=== PATIENT | female | born 1990 | race Two or more races ===

== ENCOUNTER 2024-06-10 18:25 | Outpatient (CLI) | payer OTHER, SELFPAY | END 2024-06-10 18:26 | disposition home or self-care (01) | LOC: AMB 06-13 02:15 | PROVIDERS: Visit Provider Family Medicine | DX: R42 Dizziness and giddiness (principal) | CPT/HCPCS: A0425; A0427 ==

== ENCOUNTER 2024-06-10 19:14 | Emergency (ER) | payer OTHER, SELFPAY ==
[2024-06-10 19:23] VITALS: BP 145/96; PULSE 99; RESP 18; TEMP 37; O2SAT 98; BMI 41.9
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
[2024-06-10] MEDS: METOCLOPRAMIDE HCL 10 MG in 0.9 % SODIUM CHLORIDE 100 ml 100 ML 306 MG IVPB (20:46)
[2024-06-10] MEDS: diphenhydrAMINE 50 MG/ML inj 25 MG IVP (20:47)
[2024-06-10] MEDS: 0.9 % SODIUM CHLORIDE 500 ML 500 ML IV (20:48)
[2024-06-10 21:00] VITALS: O2SAT 98
--- OUTSIDE RECORDS SUMMARY | 2024-06-10 21:14 | XMS_ITS | Encounter Summary ---
[facility] Address [address] [address] Care Team Providers Care Event Decorator And Designer Name Role Phone Jocelyn Cortes MD Primary Care Provider [phone] Encounter Details Date Type Department Care Team (Late st Contact Info) Description 05/10/2019 Correspondence None No Primary/Referring, Phy DME PATIENT INSTRUCTION PLAN OF CARE Social History Tobacco Use Types Packs/Day Years Used Date Smoking Tobacco: Some Days Cigarettes 0.5 1 Smokeless Tobacco: Never Comments:Smoked for 4 months Alcohol Use Standard Drinks/Week Comments Yes 0 (1 standard drink = 0.6 oz pur e alcohol) rare beer Comments No Sex and Gender Information Value Date Recorded Sex Assigned at Not on file Legal Sex Female 7:22 PM CDT Gender Identity Not on file Sexual Orientation Not on file documented as of this encounter Plan of Treatment Not on file documented as of this encounter Visit Diagnoses Not on filedocumented in this encounter Care Teams Event Decorator And Designer Relationship Specialty Start Date End Date Jocelyn Cortes MD [address] [place] [phone] PCP - General Family Practice 09/22/12 documented as of this encounter
--- OUTSIDE RECORDS SUMMARY | 2024-06-10 21:14 | XMS_ITS | Clinical Summary ---
Author Organization [facility] Address [address] [place] [address] Care Team Providers Care Used Car Renovator Name Role Phone Tg Russell P.A.-C. Primary Care Pro vider Source Comments Patient records contain information from all sites at [facility]. For routine questions regarding patient records, call [phone] during business hours, M-F 8:00 AM - 5:00 PM Central Time. 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 Latex Rash 02/25/2011 Allergy band placed Morphine Anaphylaxis,Hives (Reselect Reaction),Other (see comments) High 01/30/2011 Chest heaviness Medications * This document contains information received from the source organization and may not represent a complete record from that organization. cholecalciferol , vitamin D3, 25 mcg (1,000 Unit) tablet Take 1,000 Units by mouth daily. Active pyridoxine, vitamin B6, (B-6) 100 mg tablet Take 1 po day 0 Active multivitamin capsule Take 1 capsule by mouth daily. Active SUMAtriptan (Imitrex) 50 mg tablet Take 1 tablet (50 mg total) by mouth as needed for migraine. May repeat dose once in 2 hours if migraine is unresolved. Do not exceed 200 mg in 24 hours. 9 tablet 4 Active clotrimazole-be tamethasone (Lotrisone) 1-0.05 % cream Apply topically daily as needed (psoriasis). 45 g 3 4 Active omeprazole (PriLOSEC) [address] capsule Take 20 mg by mouth daily as needed. Active fluorouraciL (Efudex) 5 % creamIndication s:Wart Plantar Apply 1 Application topically 2 (two) times a day. Apply to wart left foot. 40 g 5 Active Active Problems Problem Noted Date Diagnosed Date Morbid Obesity Body Mass Index 40.0-44.9 Adult 0 05/20/2024 New Daily Persistent Headache (NDPH) 05/06/2024 Attention Deficit Disorder Combined Type 023 Overview (04/19/2024): She meets DSM-IV criteria for ADHD with inattention and hyperactivity (08/29/2022). She did not tolerate or find benefit from Bupropion or Strattera when prescribed around Spring 2022. We have previously discussed consult to Psychiatry to assist with confirming the diagnosis and providing medication management recommendations. Nicotine Dependence Cigarettes 08/29/2022 Overview (09/24/2022): - No benefit with Wellbutrin when tried for ADHD. - Patient not interested in discussing additional smoking cessation therapy at this time. Abnormal Pap Smear Cervix 11/04/2021 Overview (11/04/2021): History of colposcopy and LEEP procedure of unknown date. Pap smear completed 09/2021 was negative HPV and normal cytology. Gastroesophageal Reflux Disease 09/27/2021 Polycystic Ovary Syndrome 09/27/2021 Overview (05/10/2024): Patient declined OBGYN consult Apr 2024. See nursing communication. Tinnitus Right 09/27/2021 Migraine Headache 09/27/2021 Fibromyalgia 09/27/2021 Idiopathic Hypersomnia 09/27/2021 Overview (09/27/2021): Previous neurologist wanted patient to try Modafinil but it was too expensive. Psoriasis 09/27/2021 Arthritis Psoriatic 11/17/2019 Overview (04/18/2024): Reviewed [facility] rheumatology consult in 2019. Previously on Enbrel Vitiligo 03/21/2019 Resolved Problems Problem Noted Date Diagnosed Date Resolved Date Psoriasis 04/19/2024 04/19/2024 Anosmia 09/27/2021 02/02/2024 Depression Anxiety 09/04/2021 Dysthymia 02/24/2012 02/02/2024 Overview (09/16/2016): Reactive depression Encounters Date Type Department Care Team Description 06/06/2024 3:45 PM PREP MANAGER Office Visit Department of Orthopedic Surgery in [address] [phone] Joyce Montemayor APRN C.N.P., M.S.N. Wart Plantar (Primary Dx); Pain Foot Left Discharge Disposition: Home or Self Care 05/20/2024 9:46 AM PREP MANAGER - 05/20/2024 11:59 PM PREP MANAGER Hospital Encounter Department of Radiology in [address] [phone] Tg Russell MPAS, P.A.-C. Pain Knee Left; Pain Knee Right Discharge Disposition: Home or Self Care 05/20/2024 9:20 AM PREP MANAGER Office Visit Department of Community Internal Medicine in [address] [phone] Tg Russell MPAS, P.A.-C. Morbid Obesity Body Mass Index 40.0-44.9 Adult (HCC) (Primary Dx); Patellofemoral Pain Syndrome Left; Patellofemoral Pain Syndrome Right; Arthritis Psoriatic (HCC); Pain Knee Left; Pain Knee Right 05/20/2024 Results Follow-Up Department of Community Internal Medicine in [place], [place] [address] [place] [phone] Tg Russell MPAS, P.A.-C. DX Knee Bilateral 3 Views 05/19/2024 Clinical Communication Department of Community Internal [facility] in [place], [place] [address] [place] [phone] Tg Russell MPAS, P.A.-CSherif Communication (Knee injections ) 05/09/2024 Clinical Communication Department of [facility] in [place], [place] [address] [place] [phone] Tg Russell MPAS, P.A.-C. 05/06/2024 8:00 AM PREP MANAGER Telemedicine Department of [facility] in [place], [place] [address] [place] [phone] Tg Russell MPAS, P.A.-CSherif New Daily Persistent Headache (NDPH) (Primary Dx) 05/05/2024 9:25 AM PREP MANAGER Ancillary Procedure Department of Wound Ostomy 05/05/2024 9:00 AM PREP MANAGER Comprehensive Visit Department of Orthopedic Surgery in [address] [phone] Joyce Montemayor APRN C.N.P., M.S.N. Pain Foot Left (Primary Dx); Wart Plantar Discharge Disposition: Home or Self Care 04/21/2024 3:23 PM PREP MANAGER - 04/21/2024 11:59 PM PREP MANAGER Hospital Encounter Department of Radiology in [place], [place] [address] [phone] Tg Russell MPAS, P.A.-C. Headache Unspecified Discharge Disposition: Home or Self Care 04/19/2024 8:53 AM PREP MANAGER - 04/19/2024 11:59 PM PREP MANAGER Hospital Encounter Department of Laboratory Medicine in [place], [place] [address] [place] [phone] Tg Russell MPAS, P.A.-C. Other Thrombocytosis; Screening Test Laboratory Discharge Disposition: Home or Self Care 04/19/2024 8:00 AM PREP MANAGER Comprehensive Visit Department of [facility] in [place], [place] [address] [place] [address] Tg Russell MPAS, P.A.-C. Arthritis Psoriatic (HCC) (Primary Dx); Attention Deficit Disorder Combined Type; Fibromyalgia; Anxiety; Psoriasis; Vitiligo; Wart Plantar; Gastroesophageal Reflux Disease; Polycystic Ovary Syndrome; Morbid Obesity Body Mass Index 40.0-44.9 Adult (HCC); Headache Unspecified; Nicotine Dependence Cigarettes; Pap Smear Examination; Abnormal Pap Smear Cervix; Other Thrombocytosis; Need Vaccine Immunization; General Medical Examination Adult; Screening Test Laboratory 03/31/2024 Refill Department of Family Medicine, [facility], in [address] [phone] Neida Marshall APRN, C.N.P., D.N.P. Med Refill 03/30/2024 9:20 AM PREP MANAGER - 03/30/2024 11:59 PM PREP MANAGER Hospital Encounter Department of Laboratory Medicine in [address] [phone] Neida Marshall APRN, C.N.P., D.N.P. Migraine Headache Discharge Disposition: Home or Self Care 03/30/2024 8:00 AM PREP MANAGER Office Visit Department of [facility], [facility], in [address] [phone] Neida Marshall APRN, C.N.P., D.N.P. Migraine Headache (Primary Dx); Wart Plantar 03/28/2024 Nurse Triage Department of Community Internal Medicine in [address] [phone] Meagan Shi R.N. Headache from Last 3 Months Immunizations Immunization Administration Dates Next Due 4vHPV (discontinued) 06/01/2007 DTaP (Infanrix, Tripedia) 11/23/2008,,11/15/1994,1990,1990,1990,1990 HepB Pediatric/Adolescent 11/23/2008,,03/13/2003,2002 HepB, Unspecified 11/23/2008 Influenza, Seasonal, Injectable 02/18/2007 Influenza, Unspecified 01/31/2011 MCV4 (Menactra)(Discontinued) 06/01/2007 MMR 11/15/1994,04/25/1991 OPV 12/26/1994, 1,1990,1989 PCV20 02/14/2022 SARS-COV-2 (COVID-19) - PFIZ ER (Discontinued)(12 years or older) 09/20/2020,08/29/2020 SARS-COV-2 (COVID-19) - PFIZ ER TS(Discontinued)(12 years or older) 06/14/2021 Td (Adult), adsorbed 02/02/2003 Tdap 10/08/2018,11/23/2008 influenza vaccine quad (FLUZONE/FLUARIX) (6 months and older)(PF) 02/14/2022,06/27/2019 Family History Medical History Relation Name Comments Lupus Father's Sister Depression Maternal Grandmother Ashley Leonel rn yes Personality disorder Maternal Grandmother Ashley Santosh ongenstern Schizophrenia Maternal Grandmother Ashley Izabel oleksandr Bipolar disorder Mother Liliya Mccarthy Depression Mother Liliya Mccarthy no RA - Rheumatoid arthritis Paternal Grandmother Relation Name Status Comments Father's Sister Alive Maternal Grandmother Ashley Uzma Alive Mother Liliya Mccarthy Alive Paternal Grandmother Social History Tobacco Use Types Packs/Day Years Used Date Smoking Tobacco: Former Cigarettes 0.5 17.1 S tarted: 2008 Passive Smoke Exposure: Current Smokeless Tobacco: Former Alcohol Use Standard Drinks/Week Comments Yes 0 (1 standard drink = 0.6 oz pur e alcohol) 1-2 drinks a month [facility] Utilities Answer Date Recorded In the past 12 months has e [employer], gas, oil, or water [employer] threatened to shut off services in your home? No 04/19/2024 Humiliation, Afraid, Rape, and Kick questionnair e Answer Date Recorded Within the last year, have y ou been afraid of your partner or ex-partner? No 08/29/2022 Within the last year, have y ou been humiliated or emotionally abused in other ways by your partner or ex-partner? No Within the last year, have y ou been kicked, hit, slapped, or otherwise physically hurt by your partner or ex-partner? No 08/29/2022 Within the last year, have y ou been raped or forced to have any kind of sexual activity by your partner or ex-partner? No 08/29/2022 Social Connection and Isolat ion Panel [NHANES] Answer Date Recorded In a typical week, how many times do you talk on the phone with family, friends, or neighbors? More than three times a week 08/29/2022 How often do you get togethe r with friends or relatives? Once a week 08/29/2022 How often do you attend chur or tenriism services? Never 08/29/2022 Do you belong to any clubs o r organizations such as spiritism groups, unions, fraternal or athletic groups, or school groups? No 08/29/2022 How often do you attend meet ings of the clubs or organizations you belong to? Never 08/29/2022 Are you , , di vorced, , never , or living with a partner? Never 08/29/2022 AUDIT-C Answer Date Recorded Q1: How often do you have a drink containing alc ohol? 2-3 times a week 08/29/2022 Q2: How many drinks containi ng alcohol do you have on a typical day when you are drinking? 1 or 2 08/29/2022 Q3: How often do you have si x or more drinks on one occasion? Never 08/29/2022 Overall Financial Resource Strain (CARDIA) Answe r Date Recorded How hard is it for you to pa y for the very basics like food, housing, medical care, and heating? Not very hard 08/29/2022 PHQ-2 Answer Date Recorded PHQ-2 Score 1 05/06/2024 [facility] - Occupational Stress Questionnaire Answer Date Recorded Do you feel stress - tense, restless, nervous, or anxious, or unable to sleep at night because your mind is troubled all the time - these days? Very much 08/29/2022 Exercise Vital Sign Answer Date Recorde d On average, how many days pe r week do you engage in moderate to strenuous exercise (like a brisk walk)? 3 days 04/19/2024 On average, how many minutes do you engage in exercise at this level? 0 min 04/19/2024 Hunger Vital Sign Answer Date Recorded Within the past 12 months, y ou worried that your food would run out before you got the money to buy more. Never true 04/19/20 Within the past 12 months, t he food you bought just didn't last and you didn't have money to get more. Never true 04/19/2024 PRAPARE - Transportation Answer Date Re corded In the past 12 months, has l ack of transportation kept you from medical appointments or from getting medications? No 03/28 In the past 12 months, has l ack of transportation kept you from meetings, work, or from getting things needed for daily living? No 04/19/2024 Depression Answer Date Recor ded PHQ-9 Total Score (max 27) 18 08/29 Nutrition Answer Date Recorded On average, how many serving s of fruits and vegetables do you eat per day (serving size is equal to 1 cup or approximately the size of a tennis ball)? 0-2 04/19/2024 Dental Answer Date Recorded Dental: Regular Dentist Yes 08/30/19 Employment Answer Date Recorded Employment status Employed and actively working without restrictions 04/19/2024 Housing Stability Answer Date Recorded What is your living situation today? I have a [facility] place to live 04/19/2024 Education Answer Date Recorded What is the highest level of school you have completed or the highest degree you have received? Associate degree: academic program 08/29/2022 Comments No Sex and Gender Information Value Date Recorded Sex Assigned at Female 04/19/2024 7:32 AM PREP MANAGER Legal Sex Female 10:31 AM PREP MANAGER Gender Identity Female 04/19/2024 7:32 AM PREP MANAGER Sexual Orientation Straight 04/19/2024 7: 32 AM PREP MANAGER Last Filed Vital Signs Vital Sign Reading Time Taken Comments Blood Pressure 120/78 05/20/2024 9:01 AM PREP MANAGER Pulse 79 05/20/2024 9:01 AM PREP MANAGER Temperature 36.6 C (97.9 F) 05/20/2024 9:01 AM PREP MANAGER Respiratory Rate 20 04/19/2024 7:31 AM PREP MANAGER Oxygen Saturation 97% 06/08/2023 1:4 7 PM PREP MANAGER room air with a mask Inhaled Oxygen Concentration - - Weight 129 kg (284 lb 6.3 oz) 05/20/2024 9:01 AM PREP MANAGER Height 174 cm (5' 8.5) 05/20/2024 9:01 AM PREP MANAGER Body Mass Index 42.61 05/20/2024 9:01 AM PREP MANAGER Plan of Treatment Upcoming Encounters Date Type Department Care Team (Latest Contact Info) Description 07/05/2024 8:30 AM CDT Office Visit Department of Orthopedic Surgery in [address] [phone] Joyce Montemayor APRN, C.N.P., M.S.N. [facility] [place] [phone] Discharge Disposition: Home or Self Care 07/21/2024 4:30 PM CDT Comprehensive Visit Department of Family Medicine, [facility], in [place], [place] [address] [place] [phone] Kayy Valenzuela APRN, C.N.P. [address] [address] Health Maintenance Due Date Last Done Comments HPV Vaccines (2 - 3-dose series) 06/29/2007 06/01/2007 COVID-19 Vaccine ( season) 2023 06/14/2021, 09/20/2020, 08/29/2020 Influenza Vaccine (#1) 2024 , 06/27/2019, 01/31/2011, Additional history exists Cervical/Vaginal Cancer Screening 04/19/2025 04/19/2024, 04/19/2024, 09/27/2021, Additional history exists DTaP,Tdap,and Td Vaccines (10 - Td or Tdap) 10/08/2028 10/08/2018, 11/23/2008, 11/23/2008, Additional history exists IPV Vaccines Completed 12/26/1994, 03/29, 1990, Additional history exists Hepatitis B Vaccines Completed 11/23/2008, 11/23/2008, 09/08/2003, Additional history exists Pneumococcal vaccine (0-49 years) Aged Out 02/14/2022 No longer eligible based on patient's age to complete this topic Hepatitis C Screening Completed 04/19/2024 Depression Screening (Annual PHQ-2) Completed 05/06/2024, 05/06/2024 Procedures Procedure Name Priority Date/Time Associated Diagnosis Comments DX KNEE BILATERAL 3 VIEWS RAD - Routine (most inpatients and all outpatients) 05/20/2024 10:06 AM PREP MANAGER Pain Knee Left Pain Knee Right WOUND OSTOMY IMAGE EXAM Routine 05/05/2024 9:25 AM PREP MANAGER MR BRAIN WITHOUT AND WITH IV CONTRAST RAD - Routine (most inpatients and all outpatients) 04/21/2024 4:21 PM PREP MANAGER Headache Unspecified GLUCOSE, FASTING, S/P Routine 04/19/2024 9:05 AM PREP MANAGER Screening Test Laboratory CBC WITH DIFFERENTIAL, B Routine 04/19/2024 9:05 AM PREP MANAGER Other Thrombocytosis LIPID PANEL, S Routine 04/19/2024 9:04 AM PREP MANAGER Screening Test Laboratory BASIC METABOLIC PANEL, S/P Routine 04/19/2024 9:04 AM PREP MANAGER Screening Test Laboratory HCV AB SCRN W/REFLEX TO HCV PCR, S Routine 04/19/2024 9:04 AM PREP MANAGER Screening Test Laboratory THINPREP W/HPV CO-TEST DIAGNOSTIC Routine 04/19/2024 8:27 AM PREP MANAGER Pap Smear Examination HPV WITH GENOTYPING, PCR, THINPREP Routine 04/19/2024 8:27 AM PREP MANAGER VITAMIN D, IMMUNOASSAY, TOTAL, S Routine 03/30/2024 9:36 AM PREP MANAGER Migraine Headache ELECTROLYTE (CHEM 4) PANEL, S/P Routine 03/30/2024 9:36 AM PREP MANAGER Migraine Headache from Last 3 Months Results * DX Knee Bilateral 3 Views (05/20/2024 10:06 AM PREP MANAGER) Anatomical Region Laterality Modality Lower Extremity, Knee, Muscu loskeletal RST LOS, Musculoskeletal ARZ LOS, Muskuloskeletal FLA LOS Bilateral Digit al Radiography Impressions 05/20/2024 11:03 AM PREP MANAGER Comparison 01/04/2008. On the right, joint spaces and alignment are normal. No acute fracture or joint effusion. On the left, joint spaces and alignment are normal. No acute fracture or joint effusion. Narrative 05/20/2024 11:03 AM PREP MANAGER EXAM: DX KNEE BILATERAL 3 VIEWS Procedure Note Navneet Albrecht M.D. - 05/20/2024 EXAM: DX KNEE BILATERAL 3 VIEWS IMPRESSION: Comparison 01/04/2008. On the right, joint spaces and alignment are normal. No acute fracture orjoint effusion. On the left, joint spaces and alignment are normal. No acute fracture orjoint effusion. us Tg URIAS, P.A.-C. IMG DIAGNOSTIC IM AGING PROCEDURES Final Result * Foot left 529b-Wound Ostomy Image Exam (05/05/2024 9:25 AM PREP MANAGER) 05/05/2024 9:23 AM PREP MANAGER Narrative [facility] - 05/05/2024 9:26 AM PREP MANAGER This order has been created and auto-finalized to support the import of images acquired without order. The clinical documentation to support these images can be found on the encounter that produced images. us Provider Not In System IMG NON RAD IMAGING PROCE DURES Final Result [facility] NA * MR Brain without and with IV Contrast (04/21/2024 4:21 PM PREP MANAGER) Anatomical Region Laterality Modality Head, Brain, Neuroradiology RST LOS, Neuroradiology ARZ LOS, Neuroradiology FLA LOS N/A Magnetic Resonance Impressions 04/21/2024 5:02 PM PREP MANAGER Negative for acute intracranial disease. Narrative 04/21/2024 5:02 PM PREP MANAGER EXAM: MR BRAIN WITHOUT AND WITH IV CONTRAST COMPARISON:No pertinent prior studies. FINDINGS: No areas of restricted diffusion to suggest acute infarct. No abnormal parenchymal susceptibility. No focal enhancing brain lesions. The pituitary gland is not enlarged. Normal morphology of bilateral cerebellar tonsils which are situated above the foramen magnum. No extra-axial fluid collection, intracranial mass or midline shift. The basal cisterns are patent. Intact intracranial arterial flow voids. Bilateral orbits, paranasal sinuses and mastoid air cells are unremarkable. Procedure Note Papito Rocha M.B., E[place], MGanga - 04/21/2024 EXAM: MR BRAIN WITHOUT AND WITH IV CONTRAST COMPARISON:No pertinent prior studies. FINDINGS: No areas of restricted diffusion to suggest acute infarct. No abnormalparenchymal susceptibility. No focal enhancing brain lesions. Thepituitary gland is not enlarged. Normal morphology of bilateral cerebellartonsils which are situated above the foramen magnum. No extra-axial fluid collection, intracranial mass ormidline shift. The basal cisterns are patent. Intact intracranialarterial flow voids. Bilateral orbits, paranasal sinuses and mastoid aircells are unremarkable. IMPRESSION: Negative for acute intracranial disease. Tg URIAS, P.A.-C. IMG MRI PROCEDURE S Final Result * CBC with Differential, Blood (04/19/2024 9:05 AM PREP MANAGER) Hemoglobin 11.8 11.6 - 15.0 g/dL 04/19/2024 9:10 AM PREP MANAGER FB60 Hematocrit 36.5 35.5 - 44.9 % 04/19/2024 9:10 AM PREP MANAGER FB60 Erythrocytes 4.42 3.92 - 5.13 x10(12)/L 04/19/2024 9:10 AM PREP MANAGER FB60 MCV 82.6 78.2 - 97.9 fL 04/19/2024 9:10 AM PREP MANAGER FB60 RBC Distrib Width 13.5 12.2 - 16.1 % 04/19/2024 9:10 AM PREP MANAGER FB60 Platelet Count 357 157 - 371 x10(9)/L 04/19/2024 9:10 AM PREP MANAGER FB60 Leukocytes 9.2 3.4 - 9.6 x10(9)/L 04/19/2024 9:10 AM PREP MANAGER FB60 Neutrophils 6.11 1.56 - 6.45 x10(9)/L 04/19/2024 9:10 AM PREP MANAGER FB60 Lymphocytes 2.39 0.95 - 3.07 x10(9)/L 04/19/2024 9:10 AM PREP MANAGER FB60 Monocytes 0.56 0.26 - 0.81 x10(9)/L 04/19/2024 9:10 AM PREP MANAGER FB60 Eosinophils 0.10 0.03 - 0.48 x10(9)/L 04/19/2024 9:10 AM PREP MANAGER FB60 Basophils 0.04 0.01 - 0.08 x10(9)/L 04/19/2024 9:10 AM PREP MANAGER FB60 Blood (Blood, Venous) 04/19/2024 9:05 AM PREP MANAGER 04/19/2024 9:05 AM PREP MANAGER Tg URIAS, P.A.-C. LAB BLOOD ADD-ON Final Result [facility] [address] [place] [address], [facility] FB60 [facility] in [place] [address] [place] [address] * Glucose, Fasting (04/19/2024 9:05 AM PREP MANAGER) Glucose, P 92 70 - 100 mg/dL 04/19/2024 1:33 PM PREP MANAGER OWAT Last Intake 9 hr 04/19/2024 1:02 PM PREP MANAGER OWAT Blood (Blood, Venous) 04/19/2024 9:05 AM PREP MANAGER 04/19/2024 1:02 PM PREP MANAGER us Tg RUIAS PSherifA.-C. LAB BLOOD NON ADD -ON Final Result [facility] [address] [facility] [address], [place] OWAT [facility] in [place] [address] [place] [address] * Lipid Panel (04/19/2024 9:04 AM PREP MANAGER) Triglycerides 78 mg/dL 04/19/2024 1:26 PM PREP MANAGER OWAT Comment: ----REFERENCE VALUE---- Normal: <150 mg/dL Borderline High: 150-199 mg/dL High: 200-499 mg/dL Very High: > or =500 mg/dL Cholesterol, Total 183 mg/dL 2023 1:26 PM PREP MANAGER OWAT Comment: ----REFERENCE VALUE---- Desirable: < 200 mg/dL Borderline High: 200 - 239 mg/dL High: > or = 240 mg/dL Cholesterol, LDL, Calculated 119 mg/dL 04/19/2024 1:26 PM PREP MANAGER OWAT Comment: ----REFERENCE VALUE---- Desirable: <100 mg/dL Above Desirable: 100-129 mg/dL Borderline High: 130-159 mg/dL High: 160-189 mg/dL Very High: >=190 mg/dL ----ADDITIONAL INFORMATION---- LDL cholesterol calculated using the Zaldivar/NIH equation. Cholesterol, HDL 50 >=50 mg/dL 04/19/20 1:26 PM PREP MANAGER OWAT Cholesterol, Non-HDL, Calculated 133 mg/dL 04/19/2024 1:26 PM PREP MANAGER OWAT Comment: ----REFERENCE VALUE---- Desirable: <130 mg/dL Above Desirable: 130-159 mg/dL Borderline High: 160-189 mg/dL High: 190-219 mg/dL Very High: > or =220 mg/dL Fasting (8 HR or more) Yes 04/19/2024 9:05 AM PREP MANAGER OWAT Blood (Blood, Venous) 04/19/2024 9:04 AM PREP MANAGER 04/19/2024 1:04 PM PREP MANAGER us Tg URIAS P.A.-C. LAB BLOOD ADD-ON Final Result [facility] [address] [place] [address], [place] OW[place] [facility] in [place] [address] [place] [address] * HCV Ab Scrn w/Reflex to HCV PCR, Serum (04/19/2024 9:04 AM PREP MANAGER) Pathologist [facility] [place] HCV Ab Screen, S Negative Negative 04/19/2024 8:32 PM PREP MANAGER [facility] Blood (Blood, Venous) 04/19/2024 9:04 AM PREP MANAGER 04/19/2024 8:03 PM PREP MANAGER Narrative [facility] - 04/19/2024 8:32 PM PREP MANAGER Specimen Information: Specimen ID: [id number] Specimen Type: Blood Specimen Collection Start Date: 04/19/2024 9:04 AM Specimen Received Date: 04/19/2024 8:03 PM Specimen ID: [id number] Specimen Type: Blood Specimen Collection Start Date: 04/19/2024 9:04 AM Specimen Received Date: 04/19/2024 7:59 PM us Tg URIAS, P.A.-C. LAB MICROBIOLOGY - BLOOD ORDERABLES Final Result [facility] [address] [place] [address], [facility] MKTO [facility] [address] [place] [id number] * Basic Metabolic Panel (04/19/2024 9:04 AM PREP MANAGER) Potassium, P 4.2 3.6 - 5.2 mmol/L 04/19/2024 1:26 PM PREP MANAGER OWAT Sodium, P 138 135 - 145 mmol/L 04/19/2024 1:26 PM PREP MANAGER OWAT Chloride, P 102 98 - 107 mmol/L 04/19/2024 1:26 PM PREP MANAGER OWAT Bicarbonate, P 28 22 - 29 mmol/L 04/19/2024 1:26 PM PREP MANAGER OWAT Anion Gap, P 8 7 - 15 04/19/2024 1:26 PM PREP MANAGER OWAT BUN (Blood Urea Nitrogen), P 11 6 - 21 mg/dL 04/19/2024 1:26 PM PREP MANAGER OWAT Creatinine 0.75 0.59 - 1.04 mg/dL 04/19/2024 1:26 PM PREP MANAGER OWAT Estimated GFR (eGFR) >90 >=60 mL/min/BSA 04/19/2024 1:26 PM PREP MANAGER OWAT Comment: Estimated GFR calculated using the 2020 CKD_EPI creatinine equation. Calcium, Total, P 9.4 8.6 - 10.0 mg/dL 04/19/2024 1:26 PM PREP MANAGER OWAT Glucose, P CANCELED mg/dL 04/19/2024 1:04 PM PREP MANAGER OWAT Comment: Duplicate test request. Result canceled by the ancillary. Blood (Blood, Venous) 04/19/2024 9:04 AM PREP MANAGER 04/19/2024 1:04 PM PREP MANAGER us Tg URIAS, P.A.-C. LAB BLOOD ADD-ON Final Result [facility] [place] [address] [place] [address], [facility] OWAT [facility] [place] [address] [place] [address] * ThinPrep w/HPV Co-Test Diagnostic (04/19/2024 8:27 AM PREP MANAGER) 04/26/2024 9:29 AM PREP MANAGER HKCY Report electronically signed by MARLON Pinto([facility] I verify that I have examined all relevant slides/materials for the specimen(s) and rendered or confirmed the diagnosis. 04/26/2024 9:29 AM PREP MANAGER HKCY Gross Description Received specimen in a ThinPrep vial. 04/26/2024 9:29 AM PREP MANAGER HKCY Pap Test Source Cervical/Endocervi gerardo 04/26/2024 9:29 AM PREP MANAGER HKCY Hormone Therapy/Contracep tives None/Not known 04/26/2024 9:29 AM PREP MANAGER HKCY Interpretation Cervical/Endocervi egrardo (ThinPrep): Satisfactory for Evaluation Negative for Intraepithelial Lesion or Malignancy High Risk HPV: Negative Negative for High Risk HPV by nucleic acid amplification. The following High Risk HPV types were not detected: 16, 18, 31, 33, 35, 39, 45, 51, 52, 56, 58, 59, 66, and 68. 04/26/2024 9:29 AM PREP MANAGER HKCY Thin Prep Vial (Cervix/Endocerv ix) 04/19/2024 8:27 AM PREP MANAGER 04/21/2024 7:39 AM PREP MANAGER us Tg URIAS, P.A.-C. LAB PAP PATHDX OR DERABLES Final Result Performing Organization Address City/[facility]/ZIP Co de Phone Number [facility] [address] [place] [address], [facility] HKCY [address] [place] [address] * HPV with Genotyping, PCR, ThinPrep (04/19/2024 8:27 AM PREP MANAGER) Pathologist [facility] [place] HPV with Genotyping, ThinPrep, PCR Negative Negative 04/22/2024 3:54 AM PREP MANAGER MKTO 04/19/2024 8:27 AM PREP MANAGER 04/21/2024 7:39 AM PREP MANAGER us Tg URIAS, P.A.-C. LAB MICROBIOLOGY - GENERAL ORDERABLES Final Result Performing Organization Address City/[facility]/ZIP Co de Phone Number [facility] [address] [place] [address], [place] MK[place] [address] [place] [address] * Electrolyte (Chem 4) Panel (03/30/2024 9:36 AM PREP MANAGER) Potassium, P 4.6 3.6 - 5.2 mmol/L 03/30/2024 1:58 PM PREP MANAGER OWAT Sodium, P 139 135 - 145 mmol/L 03/30/2024 1:58 PM PREP MANAGER OWAT Chloride, P 102 98 - 107 mmol/L 03/30/2024 1:58 PM PREP MANAGER OWAT Bicarbonate, P 27 22 - 29 mmol/L 03/30/2024 1:58 PM PREP MANAGER OWAT Anion Gap, P 10 7 - 15 03/30/2024 1:58 PM PREP MANAGER OWAT Blood (Blood, Venous) 03/30/2024 9:36 AM PREP MANAGER 03/30/2024 1:09 PM PREP MANAGER us Neida Marshall APRN, C.N.P., D.N.P. LA B BLOOD ADD-ON Final Result Performing Organization Address City/[facility]/ZIP Co de Phone Number [facility] [address] [place] [address], [place] OWAT [facility] [place] [address], [place] [address] * Vitamin D, Immunoassay, Total, Serum (03/30/2024 9:36 AM PREP MANAGER) Vitamin D, Immunoassay, Total, S 36 20 - 80 ng/mL 03/30/2024 7:45 PM PREP MANAGER MKTO Comment: Optimum levels within the healthy population are 20-50, patients with bone disease may benefit from high levels within this range Blood (Blood, Venous) 03/30/2024 9:36 AM PREP MANAGER 03/30/2024 7:03 PM PREP MANAGER us Neida Marshall APRN, C.N.P., D.N.P. LA B BLOOD ADD-ON Final Result [facility] [place] [address], [place] MK[place] [facility] [place] [address] [place] [address] from Last 3 Months Insurance [employer] Care Teams Used Car Renovator Relationship Specialty Start Date End Date Tg Russell MPAS, P.A.-C. [address] [place] [phone] PCP - General Internal Medicine 09/04/21
--- OUTSIDE RECORDS SUMMARY | 2024-06-10 21:14 | XMS_ITS | Encounter Summary ---
Author Organization [facility] Address [address] [place] [address] Care Team Providers Care Scourer Name Role Phone Tg Russell P.A.-C. Primary Care Pro vider Encounter Details Date Type Department Care Team (Late st Contact Info) Description 05/05/2024 9:25 AM SHIRT BANDER Ancillary Procedure Department of Wound Ostomy Social History Tobacco Use Types Packs/Day Years Used Date Smoking Tobacco: Every Day Cigarettes 0.5 17.1 Started: 2007 Passive Smoke Exposure: Current Smokeless Tobacco: Former Alcohol Use Standard Drinks/Week Comments Yes 0 (1 standard drink = 0.6 oz pur e alcohol) 1-[address] [facility] Utilities Answer Date Recorded In the past 12 months has e electric, gas, oil, or water [employer] threatened to shut off services in your [...] 08/29/2022 How often do you attend chur ch or yazdanism services? Never 08/29/2022 Do you belong to any clubs o r organizations such as methodist groups, unions, fraternal or athletic groups, or [...] Answer Date Recorded PHQ-2 Score 1 05/06/2024 [facility] [place] of Occupat ional Health - Occupational Stress [...] the money to buy more. Never true 12/24/20 24 Within the past 12 months, t he [...] your living situation today? I have a [facility] place to live 04/19/2024 Education Answer Date Recorded What is the highest level of school you have completed or the highest degree you have received? Associate degree: academic program 08/29/2022 Comments No Sex and Gender Information Value Date Recorded Sex Assigned at Female 04/19/2024 7:32 AM SHIRT BANDER Legal Sex Female 10:31 AM SHIRT BANDER Gender Identity Female 04/19/2024 7:32 AM SHIRT BANDER Sexual Orientation Straight 04/19/2024 7: 32 AM SHIRT BANDER documented as of this encounter Plan of Treatment Upcoming Encounters Date Type Department Care Team (Latest Contact Info) Description 07/05/2024 8:30 AM CDT Office Visit Department of Orthopedic Surgery in [address] [address] Joyce Montemayor APRN, C.N.P., M.S.N. [facility] [place] [phone] Discharge Disposition: Home or Self Care 07/21/2024 4:30 PM CDT Comprehensive Visit Department of Family Medicine, [facility] [place], in [place], [place] [address] [place] [address] Kayy Valenzuela APRN, C.N.P. [address] [place] [address] documented as of this encounter Procedures Procedure Name Priority Date/Time Associated Diagnosis Comments WOUND OSTOMY IMAGE EXAM Routine 05/05/2024 9:25 AM SHIRT BANDER documented in this encounter Results * Foot left 529b-Wound Ostomy Image Exam (05/05/2024 9:25 AM SHIRT BANDER) 05/05/2024 9:23 AM SHIRT BANDER Narrative [facility]IMS - 05/05/2024 9:26 AM SHIRT BANDER This order has been created and auto-finalized to support the import of images acquired without order. The clinical documentation to support these images can be found on the encounter that produced images. us Provider Not In System IMG NON RAD IMAGING PROCE DURES Final Result [facility] NA documented in this encounter Visit Diagnoses Not on filedocumented in this encounter Additional Health Concerns Assessment Noted Time PHQ-9 Depression Total Score: 18 05 023 10:59 AM CDT documented as of this encounter Care Teams Scourer Relationship Specialty Start Date End Date Tg Russell MPAS, P.A.-C. [address] [place] [address] [place] [phone] PCP - General Internal Medicine 09/04/21 documented as of this encounter
--- OUTSIDE RECORDS SUMMARY | 2024-06-10 21:14 | XMS_ITS | Encounter Summary ---
Author Organization [facility] Address [address], [place] [address] Care Team Providers Care Bulb Grader Name Role Phone Jocelyn Cortes MD Primary Care Provider +1- [phone] Encounter Details Date Type Department Care Team (Late st Contact Info) Description 05/10/2019 Correspondence None No Primary/Referring, y E INSTRUCTION CHECKLIST Social History Tobacco Use Types Packs/Day Years [...] on filedocumented in this encounter Care Teams Bulb Grader Relationship Specialty Start Date End Date Jocelyn Cortes MD [address] [place] [address] PCP - General Family Practice 09/22/12 documented as of this encounter
--- OUTSIDE RECORDS SUMMARY | 2024-06-10 21:14 | XMS_ITS | Encounter Summary ---
Author Organization [facility] Address [address], [place] [address] Care Team Providers Care Jewel Sorter Name Role Phone Jocelyn Cortes MD Primary Care Provider +1- [phone] Encounter Details Date Type Department Care Team (Late st Contact Info) Description 05/10/2019 Correspondence None No Primary/Referring, Phy HME EQUIPMENT MANUAL EQUIPMENT MECHANIC TICKET CPAP Social History Tobacco Use Types Packs/Day Years [...] on filedocumented in this encounter Care Teams Jewel Sorter Relationship Specialty Start Date End Date Jocelyn Cortes MD [address] [place] [address] PCP - General Family Practice 09/22/12 documented as of this encounter
--- OUTSIDE RECORDS SUMMARY | 2024-06-10 21:14 | XMS_ITS | Encounter Summary ---
Author Organization [facility] Address [address] [place] [address] Care Team Providers Care Optics Technical Officer Name Role Phone Tg Russell, P.A.-C. Primary Care Pro vider Reason for Visit * Reason Onset Date Comments Communication 05/19/2024 Knee injections Encounter Details Date Type Department Care Team (Latest Contact Info) Description 05/19/2024 Clinical Communication Department of Community Internal Medicine in [place], [place] [address] [place] [phone] Tg Russell MPAS, P.A.-C. [address] [place] [phone] Communication (Knee injections ) Social History Tobacco Use Types Packs/Day Years Used Date Smoking Tobacco: Every Day Cigarettes 0.5 17.1 Started: 2007 Passive Smoke Exposure: Current Smokeless Tobacco: Former Alcohol Use Standard Drinks/Week Comments Yes 0 (1 standard drink = 0.6 oz pur e alcohol) 1-2 drinks a month [facility] Utilities Answer Date Recorded In the past 12 months has e [employer], gas, oil, or water [employer] threatened to shut off services in your [...] How often do you attend chur or hoahaoism services? Never 08/29/2022 Do you belong to any clubs o r organizations such as yarsani groups, unions, fraternal or athletic groups, or [...] Answer Date Recorded PHQ-2 Score 1 05/06/2024 [facility] [place] of Occupat ional Health - Occupational Stress [...] your living situation today? I have a [facility] place to live 04/19/2024 Education Answer Date Recorded What is the highest level of school you have completed or the highest degree you have received? Associate degree: academic program 08/29/2022 Comments No Sex and Gender Information Value Date Recorded Sex Assigned at Female 04/19/2024 7:32 AM SLEEVE BASTER Legal Sex Female 10:31 AM SLEEVE BASTER Gender Identity Female 04/19/2024 7:32 AM SLEEVE BASTER Sexual Orientation Straight 04/19/2024 7: 32 AM SLEEVE BASTER documented as of this encounter Miscellaneous Notes * Telephone Encounter - Simi Shelton L.P.N. - 05/19/2024 11:18 AM SLEEVE BASTER SUBJECTIVE CHIEF COMPLAINT / REASON FOR CALL Communication (Knee injections ) PLAN The following information was provided: Patient notified to make an appointment per Tg. Transferred to scheduling to make appointment. Information/Education: patient/caller able to teach back The following references were used: provider Tg Russell PA-C VE BASTER * Telephone Encounter - Melissa Otero C.MJohny - 05/19/2024 10:48 AM SLEEVE BASTER SUBJECTIVE CHIEF COMPLAINT / REASON FOR CALL Communication (Knee injections ) Information Discussed Called to gather more information from patient about wanting knee injections. Patient states that she is going to the gym to work out as she is really trying hard to lose weight. 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 Patient states that over the last 2 months she has been having bilateral knee pain when she works out. She states that she has pain when she does squats, walking on a treadmill, doing inclines and using a stationary bike. Patient would really like to continue to exercise and lose weight as she feels this would also helpwith the knee pain. Patient was informed to ask about the injections by other family members who have had them done. PLAN Disposition/Recommendation: notified provider and awaiting recommendations Information/Education: patient/caller able to teach back Caller agreeable to plan of care: yes The following references were used: none VE BASTER documented in this encounter Plan of Treatment Upcoming Encounters Date Type Department Care Team (Latest Contact Info) Description 07/05/2024 8:30 AM CDT Office Visit Department of Orthopedic Surgery in [address] [address] Joyce Montemayor APRN, C.N.P., M.S.N. [address] [place] [phone] Discharge Disposition: Home or Self Care 07/21/2024 4:30 PM CDT Comprehensive Visit Department of Family Medicine, [facility], in [place], [place] [address] [place] [address] Kayy Valenzuela APRN, C.N.P. [address] [place] [address] documented as of this encounter Visit Diagnoses Not on filedocumented in this encounter Additional Health Concerns Assessment Noted Time PHQ-9 Depression Total Score: 18 023 10:59 AM CDT documented as of this encounter Care Teams Optics Technical Officer Relationship Specialty Start Date End Date Tg Russell MPAS, P.A.-C. [address] [place] [address] [place] [phone] PCP - General Internal Medicine 09/04/21 documented as of this encounter
--- OUTSIDE RECORDS SUMMARY | 2024-06-10 21:14 | XMS_ITS | Encounter Summary ---
Author Organization [email or web address] Address [address], [place] [address] Care Team Providers Care Recruiter Specialist Name Role Phone Jocelyn Cortes MD Primary Care Provider +1- [phone] Encounter Details Date Type Department Care Team (Late st Contact Info) Description 02/22/2019 Correspondence External to External, Provider No address [address] PRIOR AUTH Social History Tobacco Use Types Packs/Day Years [...] on filedocumented in this encounter Care Teams Recruiter Specialist Relationship Specialty Start Date End Date Jocelyn Cortes MD [address] [place] [address] PCP - General Family Practice 09/22/12 documented as of this encounter
--- OUTSIDE RECORDS SUMMARY | 2024-06-10 21:14 | XMS_ITS | Encounter Summary ---
Author Organization [facility] Address [address] [place] [address] Care Team Providers Care Olive Knocker Name Role Phone Tg Russell P.A.-C. Primary Care Pro vider Reason for Referral * Outpatient (Routine) - Closed Specialty Diagnoses / Procedures Referred By Contac t Referred To Contact Diagnoses Pain Knee Left Pain Knee Right Procedures DX Knee Bilateral 3 Views Tg Russell MPAS, P.A.-C. [address] [place] [address] Phone: tel: fax: [facility] Region Referral ID Status Reason Start Date Expiration Date Visits Re quested Visits Authorized [id number] Closed 05/20/2024 08/20/2025 1 1 IR MECHANIC Reason for Visit * Outpatient (Routine) - Closed Specialty Diagnoses / Procedures Referred By Contac t Referred To Contact Diagnoses Pain Knee Left Pain Knee Right Procedures DX Knee Bilateral 3 Views Tg Russell MPAS, P.A.-C. [address] [place] [address] Phone: tel: fax: [facility] Region Referral ID Status Reason Start Date Expiration Date Visits Re quested Visits Authorized [id number] Closed 05/20/2024 08/20/2025 1 1 Encounter Details Date Type Department Care Team (Latest Contact Info) Description 05/20/2024 9:46 AM REPAIR MECHANIC - 05/20/2024 11:59 PM REPAIR MECHANIC Hospital Encounter Department of Radiology in [place], [place] [address] [facility] [place] [phone] Tg Russell MPAS, P.A.-C. [address] [facility] [place] [phone] Pain Knee Left; Pain Knee Right Discharge Disposition: Home or Self Care Social History Tobacco Use Types Packs/Day Years Used Date Smoking Tobacco: Former Cigarettes 0.5 17.1 S tarted: 2008 Passive Smoke Exposure: Current Smokeless Tobacco: Former Alcohol Use Standard Drinks/Week Comments Yes 0 (1 standard drink = 0.6 oz pur e alcohol) 1-2 drinks a month [facility] Utilities Answer Date Recorded In the past 12 months has [employer], oil, or water [employer] threatened to shut off services in your [...] week 08/29/2022 How often do you attend [facility] or christian services? Never 08/29/2022 Do you belong to any clubs o r organizations such as yazdanism groups, unions, fraternal or athletic groups, or [...] Answer Date Recorded PHQ-2 Score 1 05/06/2024 [facility] of Occupat ional [facility] - Occupational Stress Questionnaire Answer Date Recorded [...] money to buy more. Never true 04/19/20 24 Within the past 12 months, t [...] your living situation today? I have a [facility] place to live 04/19/2024 Education Answer Date Recorded What is the highest level of school you have completed or the highest degree you have received? Associate degree: academic program 08/29/2022 Comments No Sex and Gender Information Value Date Recorded Sex Assigned at Female 04/19/2024 7:32 AM REPAIR MECHANIC Legal Sex Female 10:31 AM REPAIR MECHANIC Gender Identity Female 04/19/2024 7:32 AM REPAIR MECHANIC Sexual Orientation Straight 04/19/2024 7: 32 AM REPAIR MECHANIC documented as of this encounter Medications at Time of Discharge cholecalciferol, vitamin D3, 25 mcg (1,000 Unit) tablet Take 1,000 Units by mouth daily. clotrimazole-bet amethasone (Lotrisone) 1-0.05 % cream Apply topically daily as needed (psoriasis). 45 g 3 03/31/2024 fluorouraciL (Efudex) 5 % creamIndications :Wart Plantar Apply 1 Application topically 2 (two) times a day. Apply to wart left foot. 40 g 05/05/2024 multivitamin capsule Take 1 capsule by mouth daily. omeprazole (PriLOSEC) [address] capsule Take 20 mg by mouth daily as needed. pyridoxine, vitamin B6, (B-6) 100 mg tablet Take 1 po day 06/27/2019 SUMAtriptan (Imitrex) 50 mg tablet Take 1 tablet (50 mg total) by mouth as needed for migraine. May repeat dose once in 2 hours if migraine is unresolved. Do not exceed 200 mg in 24 hours. 9 tablet 03/30/2024 documented as of this encounter Plan of Treatment Upcoming Encounters Date Type Department Care Team (Latest Contact Info) Description 07/05/2024 8:30 AM CDT Office Visit Department of Orthopedic Surgery in [place], [place] [address] [place] [phone] Joyce Montemayor APRN, C.N.P., M.S.N. [address] [place] [phone] Discharge Disposition: Home or Self Care 07/21/2024 4:30 PM CDT Comprehensive Visit Department of Family Medicine, [facility], in [place], [place] [address] [address] Kayy Valenzuela APRN, C.N.PSherif [address] [place] [address] documented as of this encounter Procedures Procedure Name Priority Date/Time Associated Diagnosis Comments DX KNEE BILATERAL 3 VIEWS RAD - Routine (most inpatients and all outpatients) 05/20/2024 10:06 AM REPAIR MECHANIC Pain Knee Left Pain Knee Right documented in this encounter Results * DX Knee Bilateral 3 Views (05/20/2024 10:06 AM REPAIR MECHANIC) Anatomical Region Laterality Modality Lower Extremity, Knee, Muscu loskeletal RST LOS, Musculoskeletal ARZ LOS, Muskuloskeletal FLA LOS Bilateral Digit al Radiography Impressions 05/20/2024 11:03 AM REPAIR MECHANIC Comparison 01/04/2008. On the right, joint spaces and alignment are normal. No acute fracture or joint effusion. On the left, joint spaces and alignment are normal. No acute fracture or joint effusion. Narrative 05/20/2024 11:03 AM REPAIR MECHANIC EXAM: DX KNEE BILATERAL 3 VIEWS Procedure Note Navneet Albrecht M.D. - 05/20/2024 EXAM: DX KNEE BILATERAL 3 VIEWS IMPRESSION: Comparison 01/04/2008. On the right, joint spaces and alignment are normal. No acute fracture orjoint effusion. On the left, joint spaces and alignment are normal. No acute fracture orjoint effusion. Tg URIAS P.A.-C. IMG DIAGNOSTIC IM AGING PROCEDURES Final Result documented in this encounter Visit Diagnoses Diagnosis Pain Knee Left Pain Knee Right documented in this encounter Additional Health Concerns Assessment Noted Time PHQ-9 Depression Total Score: 18 023 10:59 AM CDT documented as of this encounter Care Teams Olive Knocker Relationship Specialty Start Date End Date Tg Russell MPAS, P.A.-C. [address] [place] [phone] PCP - General Internal Medicine 09/04/21 documented as of this encounter
--- OUTSIDE RECORDS SUMMARY | 2024-06-10 21:14 | XMS_ITS | Encounter Summary ---
Author Organization [facility] Address [address] [place] [address] Care Team Providers Care Transition Coach Name Role Phone Jocelyn Cortes MD Primary Care Provider +1- [phone] Encounter Details Date Type Department Care Team (Late st Contact Info) Description 11/08/2017 Scanned History [facility] [address] [place] [address] Provider, Not On File [address] [place] [address] CONTRAST INJECTION ASSESSMENT Social History Tobacco Use Types Packs/Day Years Used Date Smoking Tobacco: Former Cigarettes 0.5 1 Comments:Smoked for 4 months Alcohol Use Standard Drinks/Week Comments Yes 0 (1 standard drink = 0.6 oz pur e alcohol) rare beer Comments Unknown Sex and Gender Information Value Date Recorded Sex Assigned at Not on file Legal Sex Female 7:22 PM CDT Gender Identity Not on file Sexual Orientation Not on file documented as of this encounter Plan of Treatment Not on file documented as of this encounter Visit Diagnoses Not on filedocumented in this encounter Care Teams Transition Coach Relationship Specialty Start Date End Date Jocelyn Cortes MD [address] [place] [phone] PCP - General Family Practice 09/22/12 documented as of this encounter
--- OUTSIDE RECORDS SUMMARY | 2024-06-10 21:14 | XMS_ITS | Encounter Summary ---
Author Organization [facility] Address [address] [place] [address] Care Team Providers Care Arabic Translator Name Role Phone Tg Russell P.A.-CSherif Primary Care Pro vider Encounter Details Date Type Department Care Team (Late st Contact Info) Description 05/09/2024 Clinical Communication Department of Community Internal Medicine in [place], [place] [address] [facility] [phone] Tg Russell MPAS P.A.-C. [address] [place] [phone] Social History Tobacco Use Types Packs/Day Years Used Date Smoking Tobacco: Every Day Cigarettes 0.5 17.1 Started: 2007 Passive Smoke Exposure: Current Smokeless Tobacco: Former Alcohol Use Standard Drinks/Week Comments Yes 0 (1 standard drink = 0.6 oz pur e alcohol) 1-2 drinks a month [facility] Utilities Answer Date Recorded In the past 12 months has e electric, gas, oil, or water company threatened to shut off services in your [...] How often do you attend chur or zoroastrian services? Never 08/29/2022 Do you belong to any clubs o r organizations such as quaker groups, unions, fraternal or athletic groups, or [...] Answer Date Recorded PHQ-2 Score 1 05/06/2024 [facility] of Occupat ional Health - Occupational Stress [...] your living situation today? I [facility] to live 04/19/2024 Education Answer Date Recorded What is the highest level of school you have completed or the highest degree you have received? Associate degree: academic program 08/29/2022 Comments No Sex and Gender Information Value Date Recorded Sex Assigned at Female 04/19/2024 7:32 AM GENERAL SCRAP WORKER Legal Sex Female 10:31 AM GENERAL SCRAP WORKER Gender Identity Female 04/19/2024 7:32 AM GENERAL SCRAP WORKER Sexual Orientation Straight 04/19/2024 7: 32 AM GENERAL SCRAP WORKER documented as of this encounter Miscellaneous Notes * Telephone Encounter - Melissa Otero C.M.A. - 05/10/2024 9:39 AM GENERAL SCRAP WORKER SUBJECTIVE CHIEF COMPLAINT / REASON FOR CALL No chief complaint on file. Information Discussed Called and informed patient of information per Tg Russell P.A.-C. Patient states that she has been dealing with the polycystic Ovarian Syndrome for a while now and has been dealing with it. Patient is not ready to see a specialist at this time. Patient states that she does want the provider to be aware of this, so when the patient is ready to see a specialist she will be able to get the referral. PLAN Disposition/Recommendation: notified provider and awaiting recommendations Information/Education: patient/caller able to teach back Caller agreeable to plan of care: yes The following references were used: provider Tg Russell P.A.-C. RAL SCRAP WORKER * Telephone Encounter - Emma Ashraf L.P.N. - 05/09/2024 8:23 AM GENERAL SCRAP WORKER Left message for patient to return call to clinic. Does the patient need to speak to nursing? no Action needed: Need to know if patient is open to seeing SECONDARY SCHOOL TEACHER to discuss polycystic Ovarian Syndrome. We covered quite a few topics at our last visit. We did not really get to discuss polycystic ovarian syndrome. Would you be open to following up with out OBGYN team to discuss this diagnosis further?I think this would be a good idea. If in agreement, I will order a consult for you. RAL SCRAP WORKER documented in this encounter Plan of Treatment Upcoming Encounters Date Type Department Care Team (Latest Contact Info) Description 07/05/2024 8:30 AM CDT Office Visit Department of Orthopedic Surgery in [address] [phone] Joyce Montemayor APRN, C.N.P., M.S.N. [address] [place] [phone] Discharge Disposition: Home or Self Care 07/21/2024 4:30 PM CDT Comprehensive Visit Department of Family Medicine, [facility], in [place], [place] [address] [place] [address] Kayy Valenzuela APRN, C.N.P. [address] [place] [address] documented as of this encounter Visit Diagnoses Not on filedocumented in this encounter Additional Health Concerns Assessment Noted Time PHQ-9 Depression Total Score: 18 023 10:59 AM CDT documented as of this encounter Care Teams Arabic Translator Relationship Specialty Start Date End Date Tg Russell MPAS, P.A.-C. [address] [place] [address] [place] [phone] PCP - General Internal Medicine 09/04/21 documented as of this encounter
--- OUTSIDE RECORDS SUMMARY | 2024-06-10 21:14 | XMS_ITS | Encounter Summary ---
Author Organization [facility] Address [address] [place] [address] Care Team Providers Care Blood Donor Recruiter Name Role Phone Tg Russell, P.A.-C. Primary Care Pro vider Reason for Referral * Outpatient (Routine) - Closed Specialty Diagnoses / Procedures Referred By Trey mujica Referred To Contact Orthopedic Surgery Joyce Montemayor APRN C.N.P., M.S.N. [address] [place] [address] Phone: tel: fax: [facility] Region Referral ID Status Reason Start Date Expiration Date Visits Re quested Visits Authorized [id number] Closed 05/05/2024 11/04/2025 1 1 ER UP Reason for Visit * Reason Comments Wart ? Wart, tried severa l treatments. * Outpatient (Routine) - Closed Specialty Diagnoses / Procedures Referred By Trey mujica Referred To Contact Orthopedic Surgery Diagnoses Wart Plantar Tg Russell MPAS, P.A.-C. [address] [place] [address] Phone: tel: fax: [facility] Region Referral ID Status Reason Start Date Expiration Date Visits Re quested Visits Authorized [id number] Closed 04/19/2024 10/19/2025 1 1 Encounter Details Date Type Department Care Team (Latest Contact Info) Description 05/05/2024 9:00 AM HOOKER UP Comprehensive Visit Department of Orthopedic Surgery in [place], [place] [address] [place] [address] Joyce Montemayor APRN, C.N.P., M.S.N. [address] [place] [address] Pain Foot Left (Primary Dx); Wart Plantar Discharge Disposition: Home or Self Care Social History Tobacco Use Types Packs/Day Years Used Date Smoking Tobacco: Every Day Cigarettes 0.5 17.1 Started: 2007 Passive Smoke Exposure: Current Smokeless Tobacco: Former Alcohol Use Standard Drinks/Week Comments Yes 0 (1 standard drink = 0.6 oz pur e alcohol) 1-2 drinks a month [facility] Utilities Answer Date Recorded In the past 12 months has [employer], gas, oil, or water [employer] threatened to shut off services in your [...] week 08/29/2022 How often do you attend [facility] or sikh services? Never 08/29/2022 Do you belong to any clubs o r organizations such as evangelical groups, unions, fraternal or athletic groups, or [...] Answer Date Recorded PHQ-2 Score 1 05/06/2024 [facility] - Occupational Stress Questionnaire Answer Date Recorded [...] your living situation today? I have a [facility] place to live 04/19/2024 Education Answer Date Recorded What is the highest level of school you have completed or the highest degree you have received? Associate degree: academic program 08/29/2022 Comments No Sex and Gender Information Value Date Recorded Sex Assigned at Female 04/19/2024 7:32 AM HOOKER UP Legal Sex Female 10:31 AM HOOKER UP Gender Identity Female 04/19/2024 7:32 AM HOOKER UP Sexual Orientation Straight 04/19/2024 7: 32 AM HOOKER UP documented as of this encounter Last Filed Vital Signs Vital Sign Reading Time Taken Comments Blood Pressure - - Pulse - - Temperature 36.5 C (97.7 F) 05/05/2024 9:08 AM HOOKER UP Respiratory Rate - - Oxygen Saturation - - Inhaled Oxygen Concentration - - Weight - - Height - - Body Mass Index - - documented in this encounter Consult Notes * Joyce Montemayor APRN, C.N.P., M.S.N. - 05/05/2024 9:00 AM CST Pain reported: Site 1 Pain Score: 4, Pain Location: Foot, Pain Orientation: Left, Pain Descriptors:Aching, Sore, Tender, Sharp, Pain Frequency: Constant/continuous, Clinical Progression: Gradually worsening, (05/05/24 0909 : Conchita Sibley S, R.N.) REASON FOR CONSULT Shi Mccarthy is a 34 y.o. female who presents for evaluation of Wart of the Left Foot (? Wart, tried several treatments.) and is under the care of ADONAY Houston, P.A.-C.. HISTORY OF PRESENT ILLNESS Patient is a 34-year-old female seen today [facility] for evaluation of plantar wart sub 5th metatarsal left foot. Patient noting that this has been present formany months now. Noting she has been seen several times with scraping and freezing, applying creamstrying [id number] freezing. Patient noting that she has tried many modalities and continues to have presence of plantar wart that is sore. She is here for further evaluation today. She denies any other pedal complaints or concerns. 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 [place]. LEEP PROCEDURE - LOOP ELECTRO EXCISION PROCEDURE SKIN BIOPSY 2019 Scalp Tobacco history is Social History Tobacco Use Smoking Status Every Day Current packs/day: 0.50 Average packs/day: 0.5 packs/day for 17.0 years (8.5 ttl pk-yrs) Types: Cigarettes Start date: 2007 Passive exposure: Current Smokeless Tobacco Former . The following portions of the patient's history were reviewed and updated as appropriate: allergies, current medications, family history, medical history, social history, surgical history, and problem list. REVIEW OF SYSTEMS Pertinent to chief complaint. Please see HPI. OBJECTIVE Temp 36.5 ??C (Temporal) LMP 04/13/2024 (Exact Date) PHYSICAL EXAM Ortho Exam Dermatologic: Integument is warm, dry, supple involving the patient's left foot. No erythema, ecchymosis or erythema. No open sores. Plantar wart sub 5th metatarsal left foot measures proximally 1.2 x 1.2 cm. Vascular: Dorsalis pedis and posterior tibial pulses are readily palpable left foot. Capillary refill time is brisk and less than 3 seconds left foot. Neurologic: Epicritic sensation intact to light touch. No paresthesias noted. Musculoskeletal: Muscle strength within normal limits, 5/5 in all groups tested. DIAGNOSTICS Sedimentation Rate, B Date Value Ref Range Status 10/20/2022 16 0 - 29 mm/1 h Final C-Reactive Protein (CRP), P Date Value Ref Range Status 10/20/2022 10.9 (H) <5.0 mg/L Final ASSESSMENT / PLAN #1 Wart Plantar #2 Pain Foot Left Patient is a 34-year-old female seen today [facility] for evaluation of plantar wart sub 5th metatarsal left foot. Plan: 1. Did evaluate left foot and plantar wart. Did discuss with patient treatment options including scraping, freezing, Meg antigen injection, prescription creams. After thorough discussion of several different treatment options patient would like to move forward with scraping today as well as Meg antigen injection. 2. I did cleanse the plantar wart areas sub 5th metatarsal left foot with alcohol wipe. Next did perform sharp debridement sterile loop curette removing all thick hyperkeratotic tissue down to pinpoint bleeding. Next did prep and cleanse the area with alcohol wipe again and inject 0.3 cubic cm of Meg antigen injection. Did apply Band-Aid. Will plan to have patient beginning in a day or 2 applying prescription Efudex cream 1 to 2 times a day under the occlusion of Band-Aid. 3. Patient to contact Podiatry or go to ED/urgent care same day with any concerns for signs or symptoms infection to include increased redness, swelling, warmth, pain, purulent drainage, fever. 4. Patient to follow up in Podiatry Clinic in 4 weeks for re-evaluation and repeat injection. She is to contact Podiatry Clinic prior to this with questions or concerns. Patient is in agreement with the plan. Total time spent providing patient care was 30 minutes. This includes time spent with the patient and time spent on same day pre/post visit EMR documentation, orders, medications, procedures, and communication with other health child adolescent care. ER UP documented in this encounter Plan of Treatment Upcoming Encounters Date Type Department Care Team (Latest Contact Info) Description 07/05/2024 8:30 AM CDT Office Visit Department of Orthopedic Surgery in [address] [phone] Joyce Montemayor APRN, C.N.P., M.S.N. [address] [place] [address] Discharge Disposition: Home or Self Care 07/21/2024 4:30 PM CDT Comprehensive Visit Department of Family Medicine, [facility], in [place], [place] [address] [place] [address] Kayy Valenzuela APRN, C.N.P. [address] [place] [address] Scheduled Referrals Name Type Priority Associated Diagnoses Order Schedule Orthopedic Surgery office visit (clinic) Outpatient Referral Routine Expected: 06/05/2024, Expires: 08/03/2025 documented as of this encounter Visit Diagnoses Diagnosis Pain Foot Left- Primary Wart Plantar documented in this encounter Additional Health Concerns Assessment Noted Time PHQ-9 Depression Total Score: 18 023 10:59 AM CDT documented as of this encounter Care Teams Blood Donor Recruiter Relationship Specialty Start Date End Date Tg Russell MPAS, P.A.-C. [address] [place] [phone] PCP - General Internal Medicine 09/04/21 documented as of this encounter
--- OUTSIDE RECORDS SUMMARY | 2024-06-10 21:14 | XMS_ITS | Encounter Summary ---
Author Organization [facility] Address [address] [place] [address] Care Team Providers Care Director Of Leadership Development Name Role Phone Tg Russell P.A.-C. Primary Care Pro vider Reason for Referral * Outpatient (Routine) - Authorized Specialty Diagnoses / Procedures Referred By Contac t Referred To Contact Orthopedic Surgery Joyce Montemayor APRN C.N.PSherif, M.S.N. [address] [place] [phone] Phone: tel: fax: [facility] Referral ID Status Reason Start Date Expiration Date V isits Requested Visits Authorized [id number] Authorized 06/06/2024 12/06/2025 1 1 [employer] Reason for Visit * Reason Comments Wart * Outpatient (Routine) - Closed Specialty Diagnoses / Procedures Referred By Contac t Referred To Contact Orthopedic Surgery Joyce Montemayor APRN C.N.P., M.S.N. [address] [place] [phone] Phone: tel: fax: [facility] Region Referral ID Status Reason Start Date Expiration Date Visits Re quested Visits Authorized [id number] Closed 05/05/2024 11/04/2025 1 1 Encounter Details Date Type Department Care Team (Late st Contact Info) Description 06/06/2024 3:45 PM SUPERVISOR FE[employer] HOUSE Office Visit Department of Orthopedic Surgery in [address] [phone] Joyce Montemayor APRN, C.N.P., M.S.N. [address] [place] [phone] Wart Plantar (Primary Dx); Pain Foot Left Discharge Disposition: Home or Self Care Social History Tobacco Use Types Packs/Day Years Used Date Smoking Tobacco: Former Cigarettes 0.5 17.1 S tarted: 2008 Passive Smoke Exposure: Current Smokeless Tobacco: Former Alcohol Use Standard Drinks/Week Comments Yes 0 (1 standard drink = 0.6 oz pur e alcohol) 1-2 drinks a month [facility] How do you roll?ities Answer Date Recorded In the past 12 months has [employer], oil, or water [employer] threatened to shut off services in your [...] week 08/29/2022 How often do you attend [facility] or yazidi services? Never 08/29/2022 Do you belong to any clubs o r organizations such as religion groups, unions, fraternal or athletic groups, or [...] Answer Date Recorded PHQ-2 Score 1 05/06/2024 [facility] Occupat ional [facility] - Occupational Stress Questionnaire Answer Date [...] your living situation today? [facility] have a [facility] place to live 04/19/2024 Education Answer Date Recorded What is the highest level of school you have completed or the highest degree you have received? Associate degree: academic program 08/29/2022 Comments No Sex and Gender Information Value Date Recorded Sex Assigned at Female 04/19/2024 7:32 AM SUPERVISOR FEED HOUSE Legal Sex Female 10:31 AM SUPERVISOR FEED HOUSE Gender Identity Female 04/19/2024 7:32 AM SUPERVISOR FEED HOUSE Sexual Orientation Straight 04/19/2024 7: 32 AM SUPERVISOR FEED HOUSE documented as of this encounter Progress Notes * Joyce Montemayor APRN, C.N.P., M.S.N. - 06/06/2024 3:45 PM CST Pain reported: Site 1 Pain Score: 5 - Moderate pain, Pain Location: Foot, Pain Orientation: Left, (06/06/24 1512 : Silvia Perez, L.P.N.) REASON FOR CONSULT Shi Mccarthy is a 34 y.o. female who presents for evaluation of Wart of the Left Foot and is under the care of ADONAY Houston, P.A.-C.. HISTORY OF PRESENT ILLNESS Patient is a 34-year-old female seen today [facility] for evaluation of plantar wart sub 5th metatarsal left foot. Patient noting that this has been present formany months now. Noting she has been seen several times with scraping and freezing, applying creamstrying [id number] freezing. Patient noting that she has tried many modalities and continues to have presence of plantar wart that is sore. Today, 06/06/2024, patient is here for follow up evaluation of plantar wart. No new concerns. 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 [place]. LEEP PROCEDURE - LOOP ELECTRO EXCISION PROCEDURE SKIN BIOPSY 2019 [place] Tobacco history is Social History Tobacco Use Smoking Status Former Current packs/day: 0.50 Average packs/day: 0.5 packs/day for 17.1 years (8.6 ttl pk-yrs) Types: Cigarettes Start date: 2007 Passive exposure: Current Smokeless Tobacco Former . The following portions of the patient's history were reviewed and updated as appropriate: allergies, current medications, family history, medical history, social history, surgical history, and problem list. REVIEW OF SYSTEMS Pertinent to chief complaint. Please see HPI. OBJECTIVE LMP 05/10/2024 (Exact Date) PHYSICAL EXAM Ortho Exam Dermatologic: Integument is warm, dry, supple involving the patient's left foot. No erythema, ecchymosis or erythema. No open sores. Plantar wart sub 5th metatarsal left foot measures approximately 0.6 x 0.4 cm. Vascular: Dorsalis pedis and posterior tibial [...] Patient is a 34-year-old female seen today [facility] for evaluation of plantar [...] Total time spent providing patient care was 15 minutes. This includes time spent with the patient and time spent on same day pre/post visit EMR documentation, orders, medications, procedures, and communication with other health child day care provider. [employer] documented in this encounter Plan of Treatment Upcoming Encounters Date Type Department Care Team (Latest Contact Info) Description 07/05/2024 8:30 AM CDT Office Visit Department of Orthopedic Surgery in [address] [phone] Joyce Montemayor APRN, C.N.P., M.S.N. [address] [place] [phone] Discharge Disposition: Home or Self Care 07/21/2024 4:30 PM CDT Comprehensive Visit Department of Family Medicine, [facility], in [place], [place] [address] [place] [phone] Kayy Valenzuela APRN, C.N.P. [address] [place] [phone] Scheduled Referrals Name Type Priority Associated Diagnoses Order Schedule Orthopedic Surgery office visit (clinic) Outpatient Referral Routine Expected: 07/04/2024, Expires: 09/03/2025 documented as of this encounter Visit Diagnoses Diagnosis Wart Plantar- Primary Pain Foot Left documented in this encounter Additional Health Concerns Assessment Noted Time PHQ-9 Depression Total Score: 18 023 10:59 AM CDT documented as of this encounter Care Teams Director Of Leadership Development Relationship Specialty Start Date End Date Tg Russell MPAS, P.A.-C. [address] [place] [address] [place] [phone] PCP - General Internal Medicine 09/04/21 documented as of this encounter
--- OUTSIDE RECORDS SUMMARY | 2024-06-10 21:14 | XMS_ITS | Clinical Summary ---
Author Organization On license of [facility] Address [address], [place] [address] Care Team Providers Care Nursing Admin Name Role Phone Jocelyn Cortes MD Primary Care Provider [phone]- [phone] Source Comments You are receiving this document as you are listed as the primary care provider,follow-up provider, or the patient has been referred to you for consultation.This is in compliance with the Medicare and[facility] Cent[facility] EHR Incentive Program,which states Providers who transition their patient to another setting of careor provider of care or refers their patient to another provider of care shouldprovide summary care record for each transition of care or referral. 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 Latex Rash 09/20/2012 Allergy band placed Morphine Anaphylaxis High 09/20/2012 Medications clotrimazole-b etamethasone (LOTRISONE) 1-0.05 % cream Apply topically. Used as needed 6 Active desogestrel-et hinyl estradiol (ISIBLOOM) 0.15-30 MG-MCG tablet See Instructions, Instructions: TAKE ONE TABLET BY MOUTH EVERY DAY, # 84 tab(s), 1 Refill(s), Type: Soft Stop, Pharmacy: [facility] 8 Active acetaminophen (TYLENOL) 500 MG tablet Take 500-1,000 mg by mouth every 4 hours as needed for Pain. Maximum acetaminophen dose is 4000 mg in 24 hours Active DULoxetine (CYMBALTA) 60 MG capsule Take 1 Capsule by mouth two times a day. 1 9 Active Pyridoxine HCl (VITAMIN B-6) 100 MG tablet Take 1 po day 0 Active cholecalcifero l (VITAMIN D3) 25 MCG (1000 UT) tablet Take 1,000 Units by mouth daily. Active triamcinolone acetonide (KENALOG) 0.1 % cream Apply topically two times a day. Apply sparingly to R arm twice a day for 2 wk 15 g 1 0 Active Meloxicam (MOBIC) 15 MG tablet TAKE 1 TABLET BY MOUTH DAILY 90 Tablet 0 Active Active Problems Problem Noted Date Diagnosed Date Psoriatic arthritis 11/17/2019 UARS (upper airway resistance syndrome) 04/28/19 20 Overview (04/28/2019): PS04/12/19 - RDI 11.6, AHI 0.1, REM RDI 7.4, Supine AHI 0, and low oxygen 91%. Low hemoglobin 03/21/2019 Vitiligo 03/21/2019 Vitamin B6 deficiency 03/21/2019 Social History Tobacco Use Types Packs/Day Years [...] on file Sexual Orientation Not on file Last Filed Vital Signs Vital Sign Reading Time Taken Comments Blood Pressure 162/89 09/11/2020 5:00 AM CDT Pulse 100 09/11/2020 5:00 AM CDT Temperature 36.8 C (98.2 F) 09/11/2020 3:45 AM CDT Respiratory Rate 18 09/11/2020 5:00 AM CDT Oxygen Saturation 97% 09/11/2020 5:00 AM CDT Inhaled Oxygen Concentration - - Weight 134.7 kg (297 lb) 01/26/2020 1:59 PM CDT Height 172.7 cm (5' 8) 11/17/2019 10:50 AM CDT Body Mass Index 45.16 11/17/2019 10:50 AM CDT Plan of Treatment Health Maintenance Due Date Last Done Comments Cervical Cancer Screening Due 1990 Adult Preventive Visit 01/23/2008 HepB (1) 2009 HPV Vaccine (3 - 3-dose series) 06/27/2013 04/04/2013, 06/01/2007 COVID-19 Vaccine (2 - season) 2023 08/29/2020 Influenza (#1) 2023 06/27/2019, 10/2010, 02/18/2007 DTaP/Tdap/Td (9 - Tdap) 10/08/2028 10/09/19, 11/23/2008, 09/08/2003, Additional history exists Zoster/Shingles (1 of 2) 01/23/2040 IPV (Polio) Completed 12/26/1994, 03/29, 1990, Additional history exists MCV4 Completed 06/01/2007 HIV Screening (Preventive Services) Completed 01/27/2019 Hep C Screening (Preventive Services) Completed 01/27/2019 HepA Aged Out No longer eligi ble based on patient's age to complete this topic Hib Aged Out No longer eligi ble based on patient's age to complete this topic Pneumococcal Aged Out No longer eligi ble based on patient's age to complete this topic Procedures Procedure Name Priority Date/Time Associated Diagnosis Comments HIV 1/2 AG/AB 4TH GEN Routine 01/27/2019 10:38 AM CDT ESR raised HEPATITIS C ANTIBODY, WITH REFLEX Routine 01/27/2019 10:38 AM CDT ESR raised from Last 3 Months or Most Recently Relevant to Health Maintenance Results * HIV 1/2 Ag/Ab 4th Generation (01/27/2019 10:38 AM CDT) HIV 1/2 Antigen/Anti body (4th generation) Negative (Non Reactive) Negative (Non Reactive) 01/27/2019 4:39 PM CDT [facility] Comment:HIV-1 p24 Antigen an d HIV-1/HIV-2 Antibody not detected Blood Venipuncture / Unknown 01/27/2019 10:38 AM CDT 01/27/2019 10:38 AM CDT Aashish Jean-Baptiste MD LAB_1 Final Result Performing Organization Address [facility] Co de Phone Number [facility] [address] [phone] * Hepatitis C Antibody, with Reflex (01/27/2019 10:38 AM CDT) Hepatitis C Antibody Negative (Non Reactive) Negative (Non Reactive) 01/27/2019 4:36 PM CDT [facility] Comment:Antibodies to HCV no t detected. Does not exclude the possiblity of exposure to HCV. Blood Venipuncture / Unknown 01/27/2019 10:38 AM CDT 01/27/2019 10:38 AM CDT Aashish Jean-Baptiste MD LAB_1 Final Result Performing Organization Address [facility] de Phone Number [facility] [address] [place] [address] from Last 3 Months or Most Recently Relevant to Health Maintenance Insurance [employer] [facility] [employer] [facility] [employer] Care Teams Nursing Admin Relationship Specialty Start Date End Date Jocelyn Cortes MD [address] [place] [address] PCP - General Family Practice 09/22/12
--- OUTSIDE RECORDS SUMMARY | 2024-06-10 21:14 | XMS_ITS | Encounter Summary ---
Author Organization [facility] Address [address] [place] [address] Care Team Providers Care Technology Applications Teacher Name Role Phone Tg Russell, P.A.-C. Primary Care Pro vider Reason for Visit * Reason Comments Follow-up Review results chron ic headache Encounter Details Date Type Department Care Team (Late st Contact Info) Description 05/06/2024 8:00 AM DIRECTOR GLOBAL MARKET RESEARCH Telemedicine Department of Community Internal Medicine in [place], [place] [address] [place] [phone] Tg Russell MPAS, P.A.-C. [address] [place] [phone] New Daily Persistent Headache (NDPH) (Primary Dx) Social History Tobacco Use Types Packs/Day Years Used Date Smoking Tobacco: Every Day Cigarettes 0.5 17.1 Started: 2007 Passive Smoke Exposure: Current Smokeless Tobacco: Former Alcohol Use Standard Drinks/Week Comments Yes 0 (1 standard drink = 0.6 oz pur e alcohol) 1-2 drinks a month [facility] Utilities Answer Date Recorded In the past 12 months has e [employer], gas, oil, or water [employer] threatened to shut off services in your [...] often do you attend chur ch or spiritism services? Never 08/29/2022 Do you belong to any clubs o r organizations such as gnosticist groups, unions, fraternal or athletic groups, or [...] Answer Date Recorded PHQ-2 Score 1 05/06/2024 [facility] of Occupat ional Health - Occupational Stress [...] your living situation today? I have a [facility] place to live 04/19/2024 Education Answer Date Recorded What is the highest level of school you have completed or the highest degree you have received? Associate degree: academic program 08/29/2022 Comments No Sex and Gender Information Value Date Recorded Sex Assigned at Female 04/19/2024 7:32 AM DIRECTOR GLOBAL MARKET RESEARCH Legal Sex Female 10:31 AM DIRECTOR GLOBAL MARKET RESEARCH Gender Identity Female 04/19/2024 7:32 AM DIRECTOR GLOBAL MARKET RESEARCH Sexual Orientation Straight 04/19/2024 7: 32 AM DIRECTOR GLOBAL MARKET RESEARCH documented as of this encounter Progress Notes * Tg Russell MPAS, P.A.-C. - 05/06/2024 8:00 AM CST SUBJECTIVE CHIEF COMPLAINT/REASON FOR VISIT Chief Complaint Patient presents with Follow-up Review results chronic headache HISTORY OF PRESENT ILLNESS Shi Mccarthy is a pleasant 34 y.o. female with a past medical history of migraine who presents to the clinic today for follow-up of brain MRI and to discuss daily headache. We briefly discussed this topic at her annual medication review few weeks prior. Since that time, she hashad an MRI of brain completed which was negative for any brain lesions or intracranial mass. Her daily headache has persisted, she has had a daily headache since 03/14/2024. On 03/14/2024, she reports having an ocular migraine. She knew she was having an ocular migraine because her symptoms were very similar to symptoms that prompted ED visit in August 2023 where she was diagnosed with ocular migraine (see care everywhere). Her symptoms on this day consisted of feeling off-balance, vomiting, visual changes, and disorientation. She says she really did not have much headache pain on this day. These symptoms lasted most of the day and then the following day (03/15) she woke up with a different type of headache and this has been the headache that has persisted. Location of headache currently is u nilateral but can vary - sometimes she feels the headache behind right eye. Other times she feels headache at base of neck. Today, she feels the headache left side of head. She denies associated tearing and nasal congestion with headache. Headache is mild and dull rated as a 2/10 in severity. Approximately 2 days a week, headache severity increases to 4 or 5/10. Overall, headache is not debilitating for her and does not affect her daily functioning. She is not currently taking Tylenol or ibuprofen on a regular basis for headache. She estimates she takes these medications 2 times a month if absolutely necessary. Her typical migraines are not ocular migraines. Typical migraines consist of light and sound sensitivity. She does not feel headache currently has any features of her migraines. She wonders about chiropractic treatment. The following portions of the patient's history were reviewed and updated as appropriate: current medications and problem list. 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 Latex Rash Allergy band placed CURRENT MEDICATIONS Current Outpatient Medications: cholecalciferol, vitamin D3, 25 mcg (1,000 Unit) tablet, Take 1,000 Units by mouth daily., Disp: , Rfl: clotrimazole-betamethasone (Lotrisone) 1-0.05 % cream, Apply topically daily as needed (psoriasis)., Disp: 45 g, Rfl: 3 fluorouraciL (Efudex) 5 % cream, Apply 1 Application topically 2 (two) times a day. Apply to wart left foot., Disp: 40 g, Rfl: 0 multivitamin capsule, Take 1 capsule by mouth daily., Disp: , Rfl: omeprazole (PriLOSEC) [address] capsule, Take 20 mg by mouth daily as needed., Disp: , Rfl: pyridoxine, vitamin B6, (B-6) 100 mg tablet, Take 1 po day, Disp: , Rfl: SUMAtriptan (Imitrex) 50 mg tablet, Take 1 tablet (50 mg total) by mouth as needed for migraine. May repeat dose once in 2 hours if migraine is unresolved. Do not exceed 200 mg in 24 hours., Disp: 9 tablet, Rfl: 0 OBJECTIVE VITAL SIGNS There were no vitals filed for this visit. PHYSICAL EXAMINATION No physical exam was done due to video visit. ASSESSMENT / PLAN IMPRESSION/REPORT/PLAN: #1 New Daily Persistent Headache (NDPH) #2 Migraine Headache Personal History Unilateral daily headache ongoing for 2 months. Negative brain MRI Mar 2024. Reviewed several headache disorders. Headache does not seem consistent with chronic migraine as she does not have any associated migrainous features. She does not meet criteria for hemicrania continua as headache is not side locked (changes locations) and she does not have any autonomic symptoms. She has not routinely taking [id number]-[id number] medications to manage headache so I do not feel this is a medication overuse headache. I feel most likely diagnosis is new daily persistent headache. I offered treatment with daily amitriptyline which she has been prescribed previously in the setting of fibromyalgia. For now, she wishes to pursue massage and chiropractic interventions as she does not feel headache is debilitating and is not affecting her daily functioning. I encouraged her to reach out to us if she has a change in symptoms or decides she would like to pursue pharmacologic intervention. If symptoms worsen or do not improve, patient is instructed to seek further medical attention. All questions have been answered. Patient demonstrated understanding and verbalized agreement with the plan. Total time spent: 30 minutes. ADONAY [place] P.ASherif-CSherif CTOR GLOBAL MARKET RESEARCH documented in this encounter Plan of Treatment Upcoming Encounters Date Type Department Care Team (Latest Contact Info) Description 07/05/2024 8:30 AM CDT Office Visit Department of Orthopedic Surgery in [place] [address] [place] [phone] Joyce Montemayor APRN, C.N.P., M.S.N. [address] [place] [phone] Discharge Disposition: Home or Self Care 07/21/2024 4:30 PM CDT Comprehensive Visit Department of Family Medicine, [facility], in [place], [place] [address] [phone] Kayy Valenzulea APRN, C.N.P. [address] [phone] documented as of this encounter Visit Diagnoses Diagnosis New Daily Persistent Headache (NDPH)- Primary documented in this encounter Additional Health Concerns Assessment Noted Time PHQ-9 Depression Total Score: 18 023 10:59 AM CDT documented as of this encounter Care Teams Technology Applications Teacher Relationship Specialty Start Date End Date Tg Russell MPAS, P.A.-C. [address] [place] [address] [place] [phone] PCP - General Internal Medicine 09/04/21 documented as of this encounter
--- OUTSIDE RECORDS SUMMARY | 2024-06-10 21:14 | XMS_ITS | Encounter Summary ---
Author Organization [facility] Address [address] [place] [address] Care Team Providers Care Community Association Manager Name Role Phone Tg Russell, P.A.-C. Primary Care Pro vider Encounter Details Date Type Department Care Team (Late st Contact Info) Description 05/20/2024 Results Follow-Up Department of Community Internal Medicine in [place], [place] [address] [facility] [phone] Tg Russell MPAS, P.A.-C. [address] [place] [phone] DX Knee Bilateral 3 Views Social History Tobacco Use Types Packs/Day Years Used Date Smoking Tobacco: Former Cigarettes 0.5 17.1 S tarted: 2008 Passive Smoke Exposure: Current Smokeless Tobacco: Former Alcohol Use Standard Drinks/Week Comments Yes 0 (1 standard drink = 0.6 oz pur e alcohol) 1-2 drinks a month [facility] Utilities Answer Date Recorded In the past 12 months has [employer], gas, oil, or water company threatened to [...] How often do you attend chur or sabianist services? Never 08/29/2022 Do you belong to any clubs o r organizations such as denominational groups, unions, fraternal or athletic groups, or [...] Answer Date Recorded PHQ-2 Score 1 05/06/2024 [facility] [place] of Occupat ional Health - Occupational Stress [...] your living situation today? I have a [facility] place to live 04/19/2024 Education Answer Date Recorded What is the highest level of school you have completed or the highest degree you have received? Associate degree: academic program 08/29/2022 Comments No Sex and Gender Information Value Date Recorded Sex Assigned at Female 04/19/2024 7:32 AM SEO ENGINEER Legal Sex Female 10:31 AM SEO ENGINEER Gender Identity Female 04/19/2024 7:32 AM SEO ENGINEER Sexual Orientation Straight 04/19/2024 7: 32 AM SEO ENGINEER documented as of this encounter Plan of Treatment Upcoming Encounters Date Type Department Care Team (Latest Contact Info) Description 07/05/2024 8:30 AM CDT Office Visit Department of Orthopedic Surgery in [address] [phone] Joyce Montemayor APRN, C.N.P., M.S.N. [address] [place] [phone] Discharge Disposition: Home or Self Care 07/21/2024 4:30 PM CDT Comprehensive Visit Department of Family Medicine, [facility], in [place], [place] [address] [place] [address] Kayy Valenzuela APRN, C.N.PSherif [address] [place] [phone] documented as of this encounter Visit Diagnoses Not on filedocumented in this encounter Additional Health Concerns Assessment Noted Time PHQ-9 Depression Total Score: 18 023 10:59 AM CDT documented as of this encounter Care Teams Community Association Manager Relationship Specialty Start Date End Date Tg Russell MPAS, P.A.-C. [address] [place] [phone] PCP - General Internal Medicine 09/04/21 documented as of this encounter
--- OUTSIDE RECORDS SUMMARY | 2024-06-10 21:14 | XMS_ITS | Encounter Summary ---
Author Organization [facility] Address [address], [place] [address] Care Team Providers Care Travel Nurse Name Role Phone Jocelyn Cortes MD Primary Care Provider +1- [phone] Encounter Details Date Type Department Care Team (Late st Contact Info) Description 03/21/2019 Scanned History [facility] [address], [address] [place] [address] Provider, Not On File [address] [place] [address] HD EPWORTH SCALE, CPAP/BIPAP QUESTIONNAIRE Social History Tobacco Use Types Packs/Day Years [...] on filedocumented in this encounter Care Teams Travel Nurse Relationship Specialty Start Date End Date Jocelyn Cortes MD [facility] [address] [place] [address] PCP - General Family Practice 09/22/12 documented as of this encounter
--- OUTSIDE RECORDS SUMMARY | 2024-06-10 21:14 | XMS_ITS | Encounter Summary ---
Author Organization [facility] Address [address], [place] [address] Care Team Providers Care Pottery Machine Operator Name Role Phone Jocelyn Cortes MD Primary Care Provider +1- [phone] Encounter Details Date Type Department Care Team (Late st Contact Info) Description 04/20/2018 Scanned History [facility] [address] [place] [address] [facility], Provider HH CONTRAST INJECTION ASSESSMENT Social History Tobacco Use [...] on filedocumented in this encounter Care Teams Pottery Machine Operator Relationship Specialty Start Date End Date Jocelyn Cortes MD [address] [place], [place] [address] [address] PCP - General Family Practice 09/22/12 documented as of this encounter
--- OUTSIDE RECORDS SUMMARY | 2024-06-10 21:14 | XMS_ITS | Encounter Summary ---
Author Organization [facility] Address [address] [place] [address] Care Team Providers Care Telephone Station Repairer Name Role Phone Tg Russell P.A.-C. Primary Care Pro vider Reason for Referral * Outpatient (Routine) - Closed Specialty Diagnoses / Procedures Referred By Contac t Referred To Contact Diagnoses Pain Knee Left Pain Knee Right Procedures DX Knee Bilateral 3 Views Tg Russell MPAS, P.A.-C. [address] [facility] [place] [address] Phone: tel: fax: [facility] Region Referral ID Status Reason Start Date Expiration Date Visits Re quested Visits Authorized [id number] Closed 05/20/2024 08/20/2025 1 1 FORCE MANAGER Reason for Visit * Reason Comments Knee Pain bilateral * Appointment Request (Routine) - Closed Specialty Diagnoses / Procedures Referred By Contac t Referred To Contact Community Internal Medicine Referral ID Status Reason Start Date Expiration Date Visits Re quested Visits Authorized [id number] Closed 05/19/2024 08/19/2025 1 1 Encounter Details Date Type Department Care Team (Late st Contact Info) Description 05/20/2024 9:20 AM WORKFORCE MANAGER Office Visit Department of Community Internal Medicine in [place], [place] [address] [place] [address] Tg Russell MPAS, P.A.-C. [address] [place] [phone] Morbid Obesity Body Mass Index 40.0-44.9 Adult (HCC) (Primary Dx); Patellofemoral Pain Syndrome Left; Patellofemoral Pain Syndrome Right; Arthritis Psoriatic (HCC); Pain Knee Left; Pain Knee Right Social History Tobacco Use Types Packs/Day Years Used Date Smoking Tobacco: Former Cigarettes 0.5 17.1 S tarted: 2007 Passive Smoke Exposure: Current Smokeless Tobacco: Former Alcohol Use Standard Drinks/Week Comments Yes 0 (1 standard drink = 0.6 oz pur e alcohol) 1-2 drinks a month [facility] [employer] Answer Date Recorded In the past 12 months has e [employer], gas, oil, or water Budding Biologist threatened to shut off services in your [...] often do you attend chur ch or buddhism services? Never 08/29/2022 Do you belong to any clubs o r organizations such as temple groups, unions, fraternal or athletic groups, or [...] Answer Date Recorded PHQ-2 Score 1 05/06/2024 [facility] - Occupational Stress Questionnaire Answer Date Recorded [...] your living situation today? I have a [facility] place to live 04/19/2024 Education Answer Date Recorded What is the highest level of school you have completed or the highest degree you have received? Associate degree: academic program 08/29/2022 Comments No Sex and Gender Information Value Date Recorded Sex Assigned at Female 04/19/2024 7:32 AM WORKFORCE MANAGER Legal Sex Female 10:31 AM WORKFORCE MANAGER Gender Identity Female 04/19/2024 7:32 AM WORKFORCE MANAGER Sexual Orientation Straight 04/19/2024 7: 32 AM WORKFORCE MANAGER documented as of this encounter Last Filed Vital Signs Vital Sign Reading Time Taken Comments Blood Pressure 120/78 05/20/2024 9:01 AM WORKFORCE MANAGER Pulse 79 05/20/2024 9:01 AM WORKFORCE MANAGER Temperature 36.6 C (97.9 F) 05/20/2024 9:01 AM WORKFORCE MANAGER Respiratory Rate - - Oxygen Saturation - - Inhaled Oxygen Concentration - - Weight 129 kg (284 lb 6.3 oz) 05/20/2024 9:01 AM WORKFORCE MANAGER Height 174 cm (5' 8.5) 05/20/2024 9:01 AM WORKFORCE MANAGER Body Mass Index 42.61 05/20/2024 9:01 AM WORKFORCE MANAGER documented in this encounter Patient Instructions * Patient Instructions* Tg Russell MPAS PSherifASherif-Brian. - 05/20/2024 9:20 AM WORKFORCE MANAGER FORCE MANAGER FORCE MANAGER documented in this encounter Progress Notes * Tg Russell MPAS, P.A.-C. - 05/20/2024 9:20 AM CST SUBJECTIVE CHIEF COMPLAINT/REASON FOR VISIT Chief Complaint Patient presents with Knee Pain bilateral HISTORY OF PRESENT ILLNESS Shi Mccarthy is a pleasant 34 y.o. female who presents to the clinic today forbilateral knee pain. This is acute on chronic. She has had knee pain on and off for years that has been flared with activities such as hiking, biking, and horseback riding. She has had a flare of her knee pain for the past 6 weeks. Knee pain is located anteriorly. This is most noticeable with weight-bearing activities specifically squatting and ascending and descending stairs. She has heard a grinding in her knees when knees are flexed in a weight bearing state for years. She describes the pain as achy and burning. There is no sharp or shooting pain. She does not have pain medial or lateral joint line. She has been participating in a workout program at a local fitness center for the past 3 months. She is now working out 6 days per week, initially started around 3 days per week. She has been needing to modify activities with her market development trainer at the gym due to knee pain. She is very motivated to lose weight so would like to keep exercising. She has tried to manage symptoms with Tylenol, N SAIDs, and heat/ice. She had knee injections completed 13 years ago for this pain which provided some benefit and is wondering if knee injections can be completed today. Problem List[1] ALLERGIES/CONTRAINDICATIONS Allergies[2] CURRENT MEDICATIONS Current Medications[3] OBJECTIVE VITAL SIGNS Vitals: 05/20/24 0901 BP: 120/78 Pulse: 79 Temp: 36.6 ??C PHYSICAL EXAMINATION General: Well-nourished, well-developed 34 y.o. in no apparent distress. Awake, alert, age appropriate. MSK: No erythema, skin changes, deformity over knees bilaterally. Tenderness to palpation around edge of patella bilaterally, some discomfort with palpation of patellar tendon. No tenderness over medial or lateral joint line. She is able to fully flex and extend knee without pain when lying supine.Crepitus auscultated with increased knee pain when squatting. Ligaments are intact with varus and va lgus stress testing. ASSESSMENT / PLAN IMPRESSION/REPORT/PLAN: #1 Patellofemoral Pain Syndrome Bilateral Symptoms and exam seem most consistent with patellofemoral pain syndrome. We will obtain knee x-raytoday to evaluate for underlying arthritis in the setting of morbid obesity. She would really like knee injections today and I would be more inclined to consider this intervention if she has osteoarthritis. Otherwise, I would recommend physical therapy for her symptoms. She can continue use of Tylenol/NSAIDs as needed. #2 Morbid Obesity Body Mass Index 40.0-44.9 Adult ([facility]) She is working hard at weight loss efforts and I recommend she continue with this. #4 Arthritis Psoriatic ([facility]) [facility] Rheumatology Consult 2019 available in Care Everywhere. Other orders - DX Knee Bilateral 3 Views; Future; Expected date: 05/20/2024 If symptoms worsen or do not improve, patient is instructed to seek further medical attention. All questions have been answered. Patient demonstrated understanding and verbalized agreement with the plan. ' Total time spent: 25 minutes ADONAY [place], P.A.-C. [1] Patient Active Problem List Diagnosis Vitiligo Arthritis Psoriatic ([facility]) Gastroesophageal Reflux Disease Polycystic Ovary Syndrome Tinnitus Right Migraine Headache Fibromyalgia Idiopathic Hypersomnia Psoriasis Abnormal Pap Smear Cervix Attention Deficit Disorder Combined Type Nicotine Dependence Cigarettes New Daily Persistent Headache (NDPH) Morbid Obesity Body Mass Index 40.0-44.9 Adult ([facility]) [2] Allergies Allergen Reactions Morphine Anaphylaxis, Hives (Reselect Reaction) and Other (see comments) Chest heaviness Iodine Rash Pt states 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 Latex Rash Allergy band placed [3] Current Outpatient Medications: cholecalciferol, vitamin D3, 25 [...] 24 hours., Disp: 9 tablet, Rfl: 0 FORCE MANAGER documented in this encounter Plan of Treatment Upcoming Encounters Date Type Department Care Team (Latest Contact Info) Description 07/05/2024 8:30 AM CDT Office Visit Department of Orthopedic Surgery in [place] [id number] [place] [phone] Joyce Montemayor APRN, C.N.P., M.S.N. [address] [place] [phone] Discharge Disposition: Home or Self Care 07/21/2024 4:30 PM CDT Comprehensive Visit Department of Family Medicine, [facility], in [place], [place] [address] [place] [phone] Kayy Valenzuela APRN, C.N.P. [address] [phone] documented as of this encounter Results * DX Knee Bilateral 3 Views (05/20/2024 10:06 AM WORKFORCE MANAGER) Anatomical Region Laterality Modality Lower Extremity, Knee, Muscu loskeletal RST LOS, Musculoskeletal ARZ LOS, Muskuloskeletal FLA LOS Bilateral Digit al Radiography Impressions 05/20/2024 11:03 AM WORKFORCE MANAGER Comparison 01/04/2008. On the right, joint spaces and alignment are normal. No acute fracture or joint effusion. On the left, joint spaces and alignment are normal. No acute fracture or joint effusion. Narrative 05/20/2024 11:03 AM WORKFORCE MANAGER EXAM: DX KNEE BILATERAL 3 VIEWS [...] documented in this encounter Visit Diagnoses Diagnosis Morbid Obesity Body Mass Index 40.0-44.9 Adult (HCC)- Primary Patellofemoral Pain Syndrome Left Patellofemoral Pain Syndrome Right Arthritis Psoriatic (HCC) Pain Knee Left Pain Knee Right Pain Knee Left Pain Knee Right documented in this encounter Additional Health Concerns Assessment Noted Time PHQ-9 Depression Total Score: 18 023 10:59 AM CDT documented as of this encounter Care Teams Telephone Station Repairer Relationship Specialty Start Date End Date Tg Russell MPAS, P.A.-C. [address] [place], [place] [address] [address] PCP - General Internal Medicine 09/04/21 documented as of this encounter
--- OUTSIDE RECORDS SUMMARY | 2024-06-10 21:14 | XMS_ITS | Encounter Summary ---
Author Organization [facility] Address [address] [place] [address] Care Team Providers Care Bander And Cellophaner Machine Helper Name Role Phone Jocelyn Cortes MD Primary Care Provider +1- [phone] Encounter Details Date Type Department Care Team (Late st Contact Info) Description 12/10/2018 Outside Hospital External to External, Provider No address [place], [place] [id number] [place] [address] PHYSICIANS VISIT NOTES AND LABS Social History Tobacco Use Types Packs/Day Years Used Date Smoking Tobacco: Former Cigarettes 0.5 1 Smokeless Tobacco: Never Comments:Smoked [...] on filedocumented in this encounter Care Teams Bander And Cellophaner Machine Helper Relationship Specialty Start Date End Date Jocelyn Cortes MD [address] [place] [address] PCP - General Family Practice 09/22/12 documented as of this encounter
--- OUTSIDE RECORDS SUMMARY | 2024-06-10 21:14 | XMS_ITS | Encounter Summary ---
Author Organization [facility] Address [address] [address] Care Team Providers Care Aquaculture Farm Manager Name Role Phone Jocelyn Cortes MD Primary Care Provider +1- [phone] Encounter Details Date Type Department Care Team (Late st Contact Info) Description 05/10/2019 Correspondence None No Primary/Referring, Phy CONSENT TO LEAVE PHONE MESSAGES KRISHAN Social History Tobacco Use Types Packs/Day Years [...] on filedocumented in this encounter Care Teams Aquaculture Farm Manager Relationship Specialty Start Date End Date Jocelyn Cortes MD [address] [place] [address] PCP - General Family Practice 09/22/12 documented as of this encounter
--- OUTSIDE RECORDS SUMMARY | 2024-06-10 21:14 | XMS_ITS | Encounter Summary ---
Author Organization [facility] Address [address], [place] [address] Care Team Providers Care Crumb Packer Name Role Phone Jocelyn Cortes MD Primary Care Provider +1- [phone] Encounter Details Date Type Department Care Team (Late st Contact Info) Description 04/12/2019 Consent for Procedure/Treatme nt [facility] [address] [place] [address] [facility], Provider CONSENT FOR SLEEP PROCEDURE AND AUDIO/VIDEO Social History Tobacco Use Types Packs/Day Years [...] on filedocumented in this encounter Care Teams Crumb Packer Relationship Specialty Start Date End Date Jocelyn Cortes MD [facility] [address] [address] PCP - General Family Practice 09/22/12 documented as of this encounter
--- OUTSIDE RECORDS SUMMARY | 2024-06-10 21:15 | XMS_ITS | Encounter Summary ---
Author Organization [facility] Address [address] [address] Care Team Providers Care Director Of Orthopedics Name Role Phone Jocelyn Cortes MD Primary Care Provider +1- [phone] Encounter Details Date Type Department Care Team (Late st Contact Info) Description 02/24/2017 Flowsheet [facility] [address] [place] [address] Provider, Not On File [address] [place] [address] HH MRI SAFETY AND HEALTH HISTORY QUESTIONNAIRE Social History Tobacco Use Types Packs/Day [...] on filedocumented in this encounter Care Teams Director Of Orthopedics Relationship Specialty Start Date End Date Jocelyn Cortes MD [facility] [employer] [address] [address] PCP - General Family Practice 09/22/12 documented as of this encounter
--- OUTSIDE RECORDS SUMMARY | 2024-06-10 21:15 | XMS_ITS | Clinical Summary ---
Author Organization [facility] Address [place], [place] [address] Care Team Providers Care Extrusion Engineer Name Role Phone Tg Russell PA-C Primary Care Provider +1- [phone] Allergies Active Allergy Reactions Criticality Noted Date Comments Latex Rash 05/29/2011 Morphine Other - Describe In Comment Field 05/29/2011 Chest heaviness Medications VIT/FE FUMARATE/FA ( ORAL)Indication s:supplement during Take 1 tablet by mouth once daily. Indications: supplement during Active ORDER - MEDICATION ORDER COMPOSER One applicator daily for yeast infection.Unkno wn name of medication,unkn own dose. Active FERROUS FUMARATE (IRON ORAL) Take 1 tablet by mouth once daily. Active Social History Tobacco Use Types Packs/Day Years Used Date Smoking Tobacco: Never Smokeless Tobacco: Never Alcohol Use Standard Drinks/Week Comments No 0 (1 standard drink = 0.6 oz pur e alcohol) Interpersonal Safety Answer Date Record ed Are you being hit, kicked, p ushed or yelled at (see row info)? No 09/10/2023 Interpersonal Safety Abuse 12 - 18 Not on file 09/10/2023 Interpersonal Safety Ambulatory Vulnerability No t on file 09/10/2023 Comments No Sex and Gender Information Value Date Recorded Sex Assigned at Not on file Legal Sex Female 8:23 AM ADMISSIONS GATE ATTENDANT Gender Identity Not on file Sexual Orientation Not on file Obstetrics History Para Term AB IAB SAB Ectopic Multiple Livin g Live Births 1 Date Outcome GA Total Labor Labor/2nd/3rd Weight Sex Type Anes PTL Herminia A1 A5 Name Clin Last Filed Vital Signs Vital Sign Reading Time Taken Comments Blood Pressure 138/74 09/10/2023 12:37 PM CDT Pulse 88 09/10/2023 12:37 PM CDT Temperature 36.3 C (97.4 F) 09/10/2023 10:18 AM CDT Respiratory Rate 18 09/10/2023 12:37 PM CDT Oxygen Saturation 99% 09/10/2023 12:37 PM CDT Inhaled Oxygen Concentration - - Weight 143.3 kg (316 lb) 09/10/2023 10:18 AM CDT Height 175.3 cm (5' 9) 09/10/2023 10:18 AM CDT Body Mass Index 46.67 09/10/2023 10:18 AM CDT Plan of Treatment Health Maintenance Due Date Last Done Comments Tdap 2001 Depression screening for age 12+ 2002 HIV for age 15-65 2005 BMI (ht and wt on same day) for age 18+ 01/23/2008 Hepatitis C screening for ag e 18-79 01/23/2008 Tetanus booster 2010 Pap test for age 21-65 2011 COVID-19 vaccine series ( season) 2023 06/14/2021, 09/20/2020, 08/29/2020 Influenza for age 9-49 12/27/2023 Pneumococcal series for age 6-49 Aged Out No longer eligible b ased on patient's age to complete this topic Insurance [facility] INDIVIDUAL AND FAMILY PLANS [employer] [id number] [id number] Advance Directives * Full Code (Latest Code Status on File) Date Activated Date Inactivated Comments 05/29/2011 2:33 AM 05/29/2011 6:53 PM Care Teams Extrusion Engineer Relationship Specialty Start Date End Date Tg Russell PA-C [address] [place] [address] [place] [phone] PCP - General Physician Practice Physician 09/10/23
--- OUTSIDE RECORDS SUMMARY | 2024-06-10 21:15 | XMS_ITS | Encounter Summary ---
Author [facility] Address [address], [place] [address] Care Team Providers Care Backup Sawyer Name Role Phone Jocelyn Cortes MD Primary Care Provider +1- [phone] Encounter Details Date Type Department Care Team (Late st Contact Info) Description 02/25/2017 Flowsheet [facility] [address] [place] [address] Provider, Not On File [address] [place] [address] HH PATIENT HISTORY SHEET Social History Tobacco Use Types Packs/Day Years [...] on filedocumented in this encounter Care Teams Backup Sawyer Relationship Specialty Start Date End Date Jocelyn Cortes MD [address] [place] [id number] PCP - General Family Practice 09/22/12 documented as of this encounter
== END 2024-06-10 22:32 | disposition home or self-care (01) ==
PROVIDERS: Emergency Provider Family Medicine
DX: G43.B0 Ophthalmoplegic migraine, not intractable (principal); F41.0 Panic disorder [episodic paroxysmal anxiety]
CPT/HCPCS: 94761; 96365; 96375; 99284; J1200; J2765; J7030